=== PATIENT | male | born 1930 | race African-American/Black ===

== ENCOUNTER 2019-09-04 03:45 | Inpatient (IN) | payer OTHER ==
[2019-09-04] VITALS (7 sets, daily range): BP systolic 128–144; BP diastolic 76–86
[~2019-09-04] VITALS: Ht 172.7 cm; Wt 95.3 kg
[2019-09-04] MEDS ORDERED: ONDANSETRON HCL 4MG/2ML INJ IV STA (03:54)
[2019-09-04] MEDS ORDERED: IPRATROPIUM BROMIDE (0.02%) 0.5MG/2.5ML NEB HHN STA (03:54)
[2019-09-04] MEDS ORDERED: ALBUTEROL (0.083%) 2.5MG/3ML NEB HHN STA (03:54)
[2019-09-04] MEDS ORDERED: FUROSEMIDE 40MG/4ML VIAL IV ONE (04:00)
[2019-09-04] MEDS ORDERED: NITROGLYCERIN OINT 1GM/INCH UDPKT TD ONE (04:00)
[2019-09-04 04:54] LABS: BASOPHILS % 0.8 % (0.0-2.0); EOSINOPHILS % 7.7 % (0.0-5.0); HEMATOCRIT. 35.2 % (42.0-52.0); LYMPHOCYTES % 13.5 % (20.0-50.0); MEAN PLATELET VOLUME 7.7 fl (7.4-10.4); PLATELET 187 x1000/uL (130-400); RED BLOOD CELL COUNT 4.24 mill/uL (4.7-6.1); RED CELL DISTRIBUTION WIDTH 16.2 % (11.6-14.6)
[2019-09-04 04:57] LABS: CHLORIDE 100 mEq/L (98-107)
[2019-09-04 05:11] LABS: BG BASE EXCESS -6.1 mmol/L (-2.0-2.0); BG BILEVEL POS AIRWAY PRESSURE 15/5; BG CARBOXYHEMOGLOBIN 0.8 % (0.5-1.5); BG DEOXYHEMOGLOBIN 1.1 % (0.0-5.0); BG FRACTION INSPIRED OXYGEN 50; BG HCO3 ACT 20.1 mmol/L (22.0-26.0); BG METHEMOGLOBIN 0.3 % (0.0-1.5); BG OXYGEN SATURATION 98.9 % (92.0-98.5); BG OXYHEMOGLOBIN 97.8 % (94.0-97.0); BG PCO2 42.5 mmHg (35.0-45.0); BG PH 7.293 (7.350-7.450); BG PO2 145.1 mmHg (75.0-100.0); BG SAMPLE SITE RIGHT RADIAL; BG TOTAL HEMOGLOBIN 13.6 g/dL (12.0-18.0); BG VENT MODE MASK - BIPAP; BG VENT RATE 14 set
[2019-09-04] MEDS ORDERED: IPRATROPIUM/ALBUTEROL 0.5-3(2.5)MG/3ML NEB NEB PRN (10:45)
[2019-09-04] MEDS ORDERED: DIPHENHYDRAMINE 50MG/ML VIAL IV PRN (10:45)
[2019-09-04] MEDS ORDERED: LORAZEPAM 0.5MG TABLET PO PRN (10:45)
[2019-09-04] MEDS ORDERED: HYDROCODONE/ACETAMINOPHEN 5/325MG TABLET PO PRN (10:45)
[2019-09-04] MEDS ORDERED: NA PHOS,M-B/NA PHOS,DI-BA ENEMA 118ML PR PRN (10:45)
[2019-09-04] MEDS ORDERED: GUAIFENESIN 200MG/10ML SUGAR FREE UDC PO PRN (10:45)
[2019-09-04] MEDS ORDERED: DEXTROSE 50% WATER 50ML SYRINGE IV PRN (10:45)
[2019-09-04] MEDS ORDERED: ACETAMINOPHEN 650MG SUPP PR PRN (10:45)
[2019-09-04] MEDS ORDERED: ACETAMINOPHEN 325MG TABLET PO PRN (10:45)
[2019-09-04] MEDS ORDERED: MAGNESIUM/ALUMINUM HYDROXIDE/SIMETHICONE 30ML UDC PO PRN (10:45)
[2019-09-04] MEDS ORDERED: DOCUSATE SODIUM 100MG CAPSULE PO PRN (10:45)
[2019-09-04] MEDS ORDERED: ONDANSETRON HCL 4MG/2ML INJ IV PRN (10:45)
[2019-09-04] MEDS ORDERED: CLONIDINE 0.1MG TABLET PO PRN (10:45)
[2019-09-04] MEDS: METHYLPREDNISOLONE SOD SUCC 40 MG/ML VIAL IV SCH ×2 (11:49→19:03)
[2019-09-04] MEDS: BLOOD SUGAR DIAGNOSTIC STRIP TEST SCH ×3 (12:48→21:00)
[2019-09-04] MEDS: INSULIN LISPRO 100 UNITS/ML SUBCUT SCH ×3 (12:58→21:44)
[2019-09-04] MEDS: LEVOFLOXACIN 500MG PREMIX 100 ML IV SCH (14:02)
[2019-09-04 15:22] LABS: BG BASE EXCESS -0.4 mmol/L (-2.0-2.0); BG CARBOXYHEMOGLOBIN 0.2 % (0.5-1.5); BG DEOXYHEMOGLOBIN 5.8 % (0.0-5.0); BG FRACTION INSPIRED OXYGEN 21; BG METHEMOGLOBIN 0.4 % (0.0-1.5); BG OXYGEN SATURATION 94.2 % (92.0-98.5); BG OXYHEMOGLOBIN 93.6 % (94.0-97.0); BG PCO2 38.2 mmHg (35.0-45.0); BG PH 7.416 (7.350-7.450); BG PO2 71.9 mmHg (75.0-100.0); BG SAMPLE SITE RIGHT RADIAL; BG TOTAL HEMOGLOBIN 11.4 g/dL (12.0-18.0); BG VENT MODE ROOM AIR
[2019-09-04] MEDS: ENOXAPARIN 40MG/0.4ML SYR SUBCUT SCH (15:31)
[2019-09-04 16:44] LABS: CLARITY URINE CLEAR (CLEAR); COLOR URINE YELLOW (YELLOW); KETONES URINE NEGATIVE (NEGATIVE); LEUKOCYTE ESTERASE URINE NEGATIVE (NEGATIVE); NITRITE URINE NEGATIVE (NEGATIVE); OCCULT BLOOD URINE NEGATIVE (NEGATIVE); PROTEIN URINE NEGATIVE (NEGATIVE); SPECIFIC GRAVITY URINE 1.007 (1.005-1.030); UROBILINOGEN URINE 0.2 E.U./dL (0.2-1.0)
[2019-09-04 16:54] LABS: *AMPHETAMINES SCREEN URINE NEGATIVE (NEGATIVE); *BARBITURATES SCREEN URINE NEGATIVE (NEGATIVE); *BENZODIAZEPINES SCREEN URINE NEGATIVE (NEGATIVE)
[2019-09-04 16:55] LABS: *COCAINE SCREEN URINE NEGATIVE (NEGATIVE); CANNABINOID URINE SCREEN NEGATIVE (NEGATIVE); METHADONE URINE SCREEN NEGATIVE (NEGATIVE); OPIATES URINE SCREEN NEGATIVE (NEGATIVE); PHENCYCLIDINE URINE SCREEN NEGATIVE (NEGATIVE)
[2019-09-04 18:24] LABS: CREATINE KINASE MB FRACTION 4.7 ng/mL (0.5-3.6)
[2019-09-04] MEDS: IPRATROPIUM/ALBUTEROL 0.5-3(2.5)MG/3ML NEB NEB SCH (20:30)
[2019-09-04] MEDS: BUDESONIDE 0.5MG/2ML NEB HHN SCH (20:30)
[2019-09-04] MEDS: FAMOTIDINE 20MG TABLET PO SCH (21:18)
[2019-09-05] VITALS (11 sets, daily range): BP systolic 122–158; BP diastolic 44–91
[2019-09-05] MEDS: IPRATROPIUM/ALBUTEROL 0.5-3(2.5)MG/3ML NEB NEB SCH ×4 (00:42→20:28)
[2019-09-05 00:50] LABS: CREATINE KINASE 367 IU/L (39-308); CREATINE KINASE MB FRACTION 5.5 ng/mL (0.5-3.6)
[2019-09-05] MEDS: METHYLPREDNISOLONE SOD SUCC 40 MG/ML VIAL IV SCH ×2 (03:28→11:58)
[2019-09-05 06:48] LABS: BASOPHILS % 0.2 % (0.0-2.0); HEMATOCRIT. 32.3 % (42.0-52.0); HEMOGLOBIN. 10.2 g/dL (14.0-18.0); LYMPHOCYTES % 9.9 % (20.0-50.0); MEAN CORPUSCULAR HEMOGLOBIN 26.1 pg (28.0-32.0); MEAN CORPUSCULAR VOLUME 82.2 fL (80.0-94.0); MONOCYTES % 4.7 % (2.0-8.0); NEUTROPHILS % 85.2 % (40.0-76.0); PLATELET 193 x1000/uL (130-400); RED BLOOD CELL COUNT 3.93 mill/uL (4.7-6.1); RED CELL DISTRIBUTION WIDTH 15.5 % (11.6-14.6)
[2019-09-05] MEDS: BLOOD SUGAR DIAGNOSTIC STRIP TEST SCH ×4 (07:30→20:49)
[2019-09-05 08:01] LABS: CHLORIDE 102 mEq/L (98-107)
[2019-09-05 08:20] LABS: HDL CHOLESTEROL 37 mg/dL (40-59)
[2019-09-05 08:21] LABS: T4 FREE 0.99 ng/dL (0.76-1.46)
[2019-09-05 08:23] LABS: LDL CHOLESTEROL 142 mg/dL (5-100)
[2019-09-05] MEDS: FUROSEMIDE 40MG/4ML VIAL IVP SCH (08:33)
[2019-09-05] MEDS: ENOXAPARIN 40MG/0.4ML SYR SUBCUT SCH (08:34)
[2019-09-05] MEDS: INSULIN LISPRO 100 UNITS/ML SUBCUT SCH ×4 (08:35→20:52)
[2019-09-05] MEDS: BUDESONIDE 0.5MG/2ML NEB HHN SCH ×2 (08:49→20:27)
[2019-09-05] MEDS: METOPROLOL TARTRATE 50MG TABLET PO SCH ×2 (13:30→22:58)
[2019-09-05] MEDS: LEVOFLOXACIN 500MG PREMIX 100 ML IV SCH (13:31)
[2019-09-05] MEDS: FAMOTIDINE 20MG TABLET PO SCH (20:49)
[2019-09-06] VITALS (12 sets, daily range): BP systolic 107–158; BP diastolic 48–92
[2019-09-06] MEDS: IPRATROPIUM/ALBUTEROL 0.5-3(2.5)MG/3ML NEB NEB SCH ×4 (01:33→20:04)
[2019-09-06] MEDS: BUDESONIDE 0.5MG/2ML NEB HHN SCH ×2 (07:24→20:04)
[2019-09-06] MEDS: BLOOD SUGAR DIAGNOSTIC STRIP TEST SCH ×3 (07:30→17:44)
[2019-09-06] MEDS: INSULIN LISPRO 100 UNITS/ML SUBCUT SCH ×4 (08:29→21:00)
[2019-09-06] MEDS: METOPROLOL TARTRATE 50MG TABLET PO SCH (08:30)
[2019-09-06] MEDS: ENOXAPARIN 40MG/0.4ML SYR SUBCUT SCH (08:30)
[2019-09-06] MEDS: FUROSEMIDE 40MG/4ML VIAL IVP SCH (08:30)
[2019-09-06] MEDS ORDERED: LEVOFLOXACIN 250MG TABLET PO SCH (11:00)
[2019-09-06] MEDS ORDERED: AMLO10TA80 PO (16:31)
[2019-09-06] MEDS ORDERED: SITA1TAB2 MT (16:31)
[2019-09-06] MEDS ORDERED: BENA20TA10 PO (16:31)
[2019-09-06] MEDS ORDERED: FURO40TA5 PO (16:31)
[2019-09-06] MEDS ORDERED: METF-415 MT (16:31)
[2019-09-06] MEDS ORDERED: ASPI-1158 PO (16:31)
[2019-09-06] MEDS ORDERED: CHOL200074 PO (16:31)
[2019-09-06] MEDS ORDERED: POTA10CA42 PO (16:31)
[2019-09-06] MEDS ORDERED: TOPUD MT (16:31)
[2019-09-06] MEDS: METFORMIN HCL 500MG TABLET PO SCH (17:43)
[2019-09-06] MEDS: METOPROLOL TARTRATE 100MG TABLET PO SCH (21:00)
[2019-09-06] MEDS ORDERED: ENOXAPARIN 30MG/0.3ML SYR SUBCUT SCH (21:00)
[2019-09-06] MEDS: FAMOTIDINE 20MG TABLET PO SCH (21:32)
[2019-09-07] VITALS (10 sets, daily range): BP systolic 101–145; BP diastolic 50–77
[2019-09-07] MEDS: IPRATROPIUM/ALBUTEROL 0.5-3(2.5)MG/3ML NEB NEB SCH ×2 (02:17→06:28)
[2019-09-07 07:58] LABS: EOSINOPHILS % 6.3 % (0.0-5.0); HEMATOCRIT. 35.2 % (42.0-52.0); HEMOGLOBIN. 11.4 g/dL (14.0-18.0); LYMPHOCYTES % 26.2 % (20.0-50.0); MEAN CORPUSCULAR HEMOGLOBIN 26.8 pg (28.0-32.0); MEAN CORPUSCULAR VOLUME 83.2 fL (80.0-94.0); MEAN PLATELET VOLUME 8.2 fl (7.4-10.4); MONOCYTES % 10.3 % (2.0-8.0); NEUTROPHILS % 56.2 % (40.0-76.0); PLATELET 68 x1000/uL (130-400); RED BLOOD CELL COUNT 4.23 mill/uL (4.7-6.1)
[2019-09-07] MEDS: FUROSEMIDE 40MG/4ML VIAL IVP SCH (08:13)
[2019-09-07] MEDS: METFORMIN HCL 500MG TABLET PO SCH ×2 (08:13→17:59)
[2019-09-07] MEDS: INSULIN LISPRO 100 UNITS/ML SUBCUT SCH ×3 (08:13→18:00)
[2019-09-07] MEDS: METOPROLOL TARTRATE 100MG TABLET PO SCH (08:13)
[2019-09-07] MEDS: BLOOD SUGAR DIAGNOSTIC STRIP TEST SCH ×3 (08:14→18:00)
[2019-09-07 08:21] LABS: CHLORIDE 104 mEq/L (98-107)
[2019-09-07 08:26] LABS: PHOSPHORUS 4.7 mg/dL (2.5-4.9)
[2019-09-07 12:09] LABS: BASOPHILS % 0.9 % (0.0-2.0); EOSINOPHILS % 5.7 % (0.0-5.0); HEMATOCRIT. 37.5 % (42.0-52.0); HEMOGLOBIN. 11.8 g/dL (14.0-18.0); LYMPHOCYTES % 20.9 % (20.0-50.0); MEAN CORPUSCULAR HEMOGLOBIN 26.1 pg (28.0-32.0); MEAN CORPUSCULAR VOLUME 82.5 fL (80.0-94.0); MEAN PLATELET VOLUME 8.1 fl (7.4-10.4); MONOCYTES % 9.3 % (2.0-8.0); NEUTROPHILS % 63.2 % (40.0-76.0); PLATELET 218 x1000/uL (130-400); RED BLOOD CELL COUNT 4.54 mill/uL (4.7-6.1); RED CELL DISTRIBUTION WIDTH 15.9 % (11.6-14.6)
[2019-09-07 12:22] LABS: PROTHROMBIN TIME 10.7 sec (9.6-11.0)
[2019-09-07] MEDS ORDERED: LEVO500T2 MT (12:52)
[2019-09-07] MEDS ORDERED: METO100T16 MT (12:52)
[2019-09-07] MEDS ORDERED: INSU100I28 SQ (12:52)
[2019-09-07] MEDS ORDERED: INSU100V37 SQ (12:52)
[2019-09-07] MEDS ORDERED: ALBU05 NEB (12:52)
[2019-09-07] MEDS ORDERED: MAGNESIUM 1 G PREMIX 100 ML IV SCH (13:00)
== END 2019-09-07 22:42 | disposition home or self-care (01) | DRG 291 ==
LOC: ER 03:45 → 5EST 05:38 → EDBEDREQ 05:43 → EDBEDREQTM 05:43 → EDBEDREQSVC 05:43 → ENRESERV 10:15
PROVIDERS: ADMIT Internal Medicine; ATTEND Internal Medicine
PROC: 5A09357 Assistance with Respiratory Ventilation, Less than 24 Consecutive Hours, Continuous Positive Airway Pressure (ICD-10-PCS; principal; 2019-09-04)
PROC: 5A09357 Assistance with Respiratory Ventilation, Less than 24 Consecutive Hours, Continuous Positive Airway Pressure (ICD-10-PCS; 2019-09-05)
DX: I11.0 Hypertensive heart disease with heart failure (principal); J96.02 Acute respiratory failure with hypercapnia; J18.9 Pneumonia, unspecified organism; J44.1 Chronic obstructive pulmonary disease with (acute) exacerbation; E87.2 Acidosis; J44.0 Chronic obstructive pulmonary disease with (acute) lower respiratory infection; I50.33 Acute on chronic diastolic (congestive) heart failure; D64.9 Anemia, unspecified; E78.00 Pure hypercholesterolemia, unspecified; D72.829 Elevated white blood cell count, unspecified; E66.9 Obesity, unspecified; E11.65 Type 2 diabetes mellitus with hyperglycemia; R59.9 Enlarged lymph nodes, unspecified; Z87.891 Personal history of nicotine dependence; Z68.31 Body mass index [BMI] 31.0-31.9, adult
CPT/HCPCS: 36415; 36600; 71045; 71250; 80048; 80053; 80061; 80305; 81003; 82375; 82550; 82553; 82805; 82962; 83036; 83605; 83735; 83880; 84100; 84439; 84443; 84484; 85025; 93005; 93306; 93970; 94618; 94640; 94660; 97161; 99291; J1650; J1815; J1940; J1956; J2405; J2920; J3475; J7626

== ENCOUNTER 2019-09-15 01:50 | Inpatient (IN) | payer OTHER ==
[2019-09-15] VITALS (8 sets, daily range): BP systolic 130–152; BP diastolic 60–93
[~2019-09-15] VITALS: Ht 167.6 cm; Wt 98.4 kg
[~2019-09-15 01:50] MED LIST: ALBU05 NEB; AMLO10TA80 PO; ASPI-1158 PO; CHOL200074 PO; FURO40TA5 PO; INSU100I28 SQ; INSU100V37 SQ; LEVO500T2 MT; METF-415 MT; METO100T16 MT; POTA10CA42 PO; TOPUD MT
[2019-09-15] MEDS ORDERED: IPRATROPIUM BROMIDE (0.02%) 0.5MG/2.5ML NEB HHN STA (02:40)
[2019-09-15] MEDS ORDERED: ONDANSETRON HCL 4MG/2ML INJ IV STA (02:40)
[2019-09-15] MEDS ORDERED: METHYLPREDNISOLONE SOD SUCC 125 MG/2 ML VIAL IV STA (02:40)
[2019-09-15] MEDS ORDERED: MAGNESIUM 2 G PREMIX 50 ML IV ONE (02:45)
[2019-09-15 03:01] LABS: BASOPHILS % 0.6 % (0.0-2.0); EOSINOPHILS % 4.4 % (0.0-5.0); HEMATOCRIT. 35.6 % (42.0-52.0); HEMOGLOBIN. 11.1 g/dL (14.0-18.0); LYMPHOCYTES % 16.9 % (20.0-50.0); MEAN CORPUSCULAR HEMOGLOBIN 26.1 pg (28.0-32.0); MEAN CORPUSCULAR VOLUME 83.2 fL (80.0-94.0); MEAN PLATELET VOLUME 8.7 fl (7.4-10.4); MONOCYTES % 6.4 % (2.0-8.0); NEUTROPHILS % 71.7 % (40.0-76.0); PLATELET 216 x1000/uL (130-400); RED BLOOD CELL COUNT 4.27 mill/uL (4.7-6.1); RED CELL DISTRIBUTION WIDTH 16.4 % (11.6-14.6)
[2019-09-15 03:03] LABS: CHLORIDE 107 mEq/L (98-107)
[2019-09-15 03:07] LABS: BG BASE EXCESS -6.3 mmol/L (-2.0-2.0); BG BILEVEL POS AIRWAY PRESSURE 15/5; BG CARBOXYHEMOGLOBIN 0.2 % (0.5-1.5); BG DEOXYHEMOGLOBIN 2.1 % (0.0-5.0); BG FRACTION INSPIRED OXYGEN 50; BG HCO3 ACT 18.7 mmol/L (22.0-26.0); BG METHEMOGLOBIN 0.3 % (0.0-1.5); BG OXYGEN SATURATION 97.9 % (92.0-98.5); BG OXYHEMOGLOBIN 97.4 % (94.0-97.0); BG PCO2 35.2 mmHg (35.0-45.0); BG PH 7.343 (7.350-7.450); BG PO2 112.9 mmHg (75.0-100.0); BG SAMPLE SITE RIGHT RADIAL; BG TOTAL HEMOGLOBIN 11.2 g/dL (12.0-18.0); BG VENT MODE MASK - BIPAP
[2019-09-15] MEDS: ALBUTEROL (0.083%) 2.5MG/3ML NEB HHN SCH ×2 (03:44→03:45)
[2019-09-15] MEDS ORDERED: PIPERACILLIN/TAZ 3.375G PREMIX 50 ML IV ONE (06:00)
[2019-09-15] MEDS ORDERED: VANCOMYCIN 1 G PREMIX 200 ML IV SCH (06:00)
[2019-09-15] MEDS ORDERED: GUAIFENESIN 200MG/10ML SUGAR FREE UDC PO PRN (13:15)
[2019-09-15] MEDS ORDERED: ONDANSETRON HCL 4MG/2ML INJ IV PRN (13:15)
[2019-09-15] MEDS ORDERED: MAGNESIUM/ALUMINUM HYDROXIDE/SIMETHICONE 30ML UDC PO PRN (13:15)
[2019-09-15] MEDS ORDERED: ACETAMINOPHEN 325MG TABLET PO PRN (13:15)
[2019-09-15] MEDS ORDERED: DOCUSATE SODIUM 100MG CAPSULE PO PRN (13:15)
[2019-09-15] MEDS ORDERED: LORAZEPAM 0.5MG TABLET PO PRN (13:15)
[2019-09-15] MEDS ORDERED: IPRATROPIUM/ALBUTEROL 0.5-3(2.5)MG/3ML NEB NEB PRN (13:15)
[2019-09-15] MEDS ORDERED: NA PHOS,M-B/NA PHOS,DI-BA ENEMA 118ML PR PRN (13:15)
[2019-09-15] MEDS ORDERED: DIPHENHYDRAMINE 50MG/ML VIAL IV PRN (13:15)
[2019-09-15] MEDS ORDERED: ACETAMINOPHEN 650MG SUPP PR PRN (13:15)
[2019-09-15] MEDS ORDERED: DEXTROSE 50% WATER 50ML SYRINGE IV PRN (13:15)
[2019-09-15] MEDS ORDERED: CLONIDINE 0.1MG TABLET PO PRN (13:15)
[2019-09-15] MEDS ORDERED: HYDROCODONE/ACETAMINOPHEN 5/325MG TABLET PO PRN (13:15)
[2019-09-15] MEDS: METHYLPREDNISOLONE SOD SUCC 40 MG/ML VIAL IV SCH ×2 (14:00→20:52)
[2019-09-15 14:17] LABS: BG BASE EXCESS -4.8 mmol/L (-2.0-2.0); BG CARBOXYHEMOGLOBIN 0.7 % (0.5-1.5); BG DEOXYHEMOGLOBIN 6.8 % (0.0-5.0); BG FRACTION INSPIRED OXYGEN 21; BG HCO3 ACT 20.2 mmol/L (22.0-26.0); BG METHEMOGLOBIN 0.1 % (0.0-1.5); BG OXYGEN SATURATION 93.1 % (92.0-98.5); BG OXYHEMOGLOBIN 92.4 % (94.0-97.0); BG PCO2 37.1 mmHg (35.0-45.0); BG PH 7.353 (7.350-7.450); BG PO2 71.3 mmHg (75.0-100.0); BG SAMPLE SITE RIGHT RADIAL; BG TOTAL HEMOGLOBIN 11.4 g/dL (12.0-18.0); BG VENT MODE ROOM AIR
[2019-09-15] MEDS ORDERED: INSULIN GLARGINE UD 100 UNITS/ML SYR SUBCUT NR (14:30)
[2019-09-15] MEDS: IPRATROPIUM/ALBUTEROL 0.5-3(2.5)MG/3ML NEB NEB SCH ×2 (15:51→21:17)
[2019-09-15] MEDS: BLOOD SUGAR DIAGNOSTIC STRIP TEST SCH ×2 (17:58→20:11)
[2019-09-15 18:08] LABS: BASOPHILS % 0.4 % (0.0-2.0); EOSINOPHILS % 0.3 % (0.0-5.0); HEMATOCRIT. 31.7 % (42.0-52.0); LYMPHOCYTES % 8.6 % (20.0-50.0); MEAN CORPUSCULAR HEMOGLOBIN 26.2 pg (28.0-32.0); MEAN CORPUSCULAR VOLUME 82.6 fL (80.0-94.0); MEAN PLATELET VOLUME 7.7 fl (7.4-10.4); MONOCYTES % 5.6 % (2.0-8.0); NEUTROPHILS % 85.1 % (40.0-76.0); PLATELET 215 x1000/uL (130-400); RED BLOOD CELL COUNT 3.84 mill/uL (4.7-6.1); RED CELL DISTRIBUTION WIDTH 16.7 % (11.6-14.6)
[2019-09-15] MEDS: INSULIN LISPRO 100 UNITS/ML SUBCUT SCH ×2 (18:18→20:55)
[2019-09-15] MEDS: PIPERACILLIN/TAZOBACTAM 3.375 G in DEXT 5% WATER 100 ML IV SCH ×2 (18:19→20:11)
[2019-09-15] MEDS: FUROSEMIDE 40MG/4ML VIAL IVP SCH (18:19)
[2019-09-15 18:27] LABS: CLARITY URINE CLEAR (CLEAR); COLOR URINE YELLOW (YELLOW); KETONES URINE NEGATIVE (NEGATIVE); LEUKOCYTE ESTERASE URINE NEGATIVE (NEGATIVE); NITRITE URINE NEGATIVE (NEGATIVE); OCCULT BLOOD URINE NEGATIVE (NEGATIVE); PROTEIN URINE NEGATIVE (NEGATIVE); SPECIFIC GRAVITY URINE 1.027 (1.005-1.030); UROBILINOGEN URINE 0.2 E.U./dL (0.2-1.0)
[2019-09-15 18:34] LABS: INR 1.1; PROTHROMBIN TIME 10.8 sec (9.6-11.0)
[2019-09-15 18:46] LABS: CREATINE KINASE 229 IU/L (39-308); CREATINE KINASE MB FRACTION 3.8 ng/mL (0.5-3.6)
[2019-09-15 19:23] LABS: *AMPHETAMINES SCREEN URINE NEGATIVE (NEGATIVE); *BARBITURATES SCREEN URINE NEGATIVE (NEGATIVE); *BENZODIAZEPINES SCREEN URINE NEGATIVE (NEGATIVE); *COCAINE SCREEN URINE NEGATIVE (NEGATIVE)
[2019-09-15 19:24] LABS: CANNABINOID URINE SCREEN NEGATIVE (NEGATIVE); OPIATES URINE SCREEN NEGATIVE (NEGATIVE); PHENCYCLIDINE URINE SCREEN NEGATIVE (NEGATIVE)
[2019-09-15 19:25] LABS: METHADONE URINE SCREEN NEGATIVE (NEGATIVE)
[2019-09-15] MEDS: INSULIN GLARGINE UD 100 UNITS/ML SYR SUBCUT SCH (23:18)
[2019-09-16] VITALS (10 sets, daily range): BP systolic 121–148; BP diastolic 67–84
[2019-09-16] MEDS: IPRATROPIUM/ALBUTEROL 0.5-3(2.5)MG/3ML NEB NEB SCH ×3 (02:20→15:27)
[2019-09-16] MEDS: PIPERACILLIN/TAZOBACTAM 3.375 G in DEXT 5% WATER 100 ML IV SCH ×3 (02:36→15:05)
[2019-09-16] MEDS: METHYLPREDNISOLONE SOD SUCC 40 MG/ML VIAL IV SCH ×2 (05:14→14:19)
[2019-09-16 07:00] LABS: HEMATOCRIT. 30.8 % (42.0-52.0); HEMOGLOBIN. 9.8 g/dL (14.0-18.0); MEAN CORPUSCULAR HEMOGLOBIN 26.5 pg (28.0-32.0); MEAN CORPUSCULAR VOLUME 82.7 fL (80.0-94.0); MEAN PLATELET VOLUME 8.1 fl (7.4-10.4); PLATELET 217 x1000/uL (130-400); RED BLOOD CELL COUNT 3.72 mill/uL (4.7-6.1); RED CELL DISTRIBUTION WIDTH 16.3 % (11.6-14.6)
[2019-09-16] MEDS: BLOOD SUGAR DIAGNOSTIC STRIP TEST SCH ×2 (07:33→12:30)
[2019-09-16] MEDS: INSULIN LISPRO 100 UNITS/ML SUBCUT SCH ×2 (07:39→12:37)
[2019-09-16 08:37] LABS: CHLORIDE 102 mEq/L (98-107)
[2019-09-16 08:48] LABS: CREATINE KINASE 179 IU/L (39-308)
[2019-09-16 08:49] LABS: T4 FREE 0.98 ng/dL (0.76-1.46)
[2019-09-16 08:53] LABS: CREATINE KINASE MB FRACTION 2.8 ng/mL (0.5-3.6)
[2019-09-16] MEDS: FUROSEMIDE 40MG/4ML VIAL IVP SCH (09:06)
[2019-09-16] MEDS: INSULIN GLARGINE UD 100 UNITS/ML SYR SUBCUT SCH (10:10)
[2019-09-16 14:12] LABS: PLATELET ESTIMATE NORMAL
[2019-09-16] MEDS ORDERED: LEVO500T2 PO (15:40)
[2019-09-16] MEDS ORDERED: P20 PO (15:40)
[2019-09-16] MEDS ORDERED: FLUT1AER INH (15:40)
== END 2019-09-16 18:30 | disposition home or self-care (01) | DRG 291 ==
LOC: ER 01:50 → 5EST 05:55 → EDBEDREQ 05:58 → EDBEDREQTM 05:58 → EDBEDREQSVC 05:58 → ENRESERV 07:23
PROVIDERS: ADMIT Internal Medicine; ATTEND Internal Medicine
PROC: 5A09357 Assistance with Respiratory Ventilation, Less than 24 Consecutive Hours, Continuous Positive Airway Pressure (ICD-10-PCS; principal; 2019-09-15)
DX: I11.0 Hypertensive heart disease with heart failure (principal); J18.9 Pneumonia, unspecified organism; J96.01 Acute respiratory failure with hypoxia; J44.1 Chronic obstructive pulmonary disease with (acute) exacerbation; E87.2 Acidosis; I50.33 Acute on chronic diastolic (congestive) heart failure; D64.9 Anemia, unspecified; E11.65 Type 2 diabetes mellitus with hyperglycemia; E78.00 Pure hypercholesterolemia, unspecified; E78.5 Hyperlipidemia, unspecified; Z79.899 Other long term (current) drug therapy; Z79.82 Long term (current) use of aspirin; Z87.891 Personal history of nicotine dependence
CPT/HCPCS: 36415; 36600; 71045; 80053; 80305; 81003; 82375; 82550; 82553; 82805; 82962; 83605; 83880; 84439; 84443; 84484; 85025; 93005; 94640; 94660; 97162; 99291; J1815; J1940; J2405; J2543; J2920; J2930; J3370; J3475; J7060; J7611; J7620

== ENCOUNTER 2020-03-19 17:47 | Emergency (ER) | payer OTHER ==
[~2020-03-19] VITALS: Ht 172.7 cm; Wt 66.0 kg
[~2020-03-19 17:47] MED LIST changes: +FLUT1AER INH; -LEVO500T2 MT; +LEVO500T2 PO; +P20 PO; -POTA10CA42 PO
[2020-03-19] MEDS ORDERED: SODIUM CHLORIDE 0.9% 1,000 ML IV ONE (18:09)
[2020-03-19 18:59] LABS: BASOPHILS % 0.7 % (0.0-2.0); HEMATOCRIT. 34.5 % (42.0-52.0); LYMPHOCYTES % 13.1 % (20.0-50.0); MEAN CORPUSCULAR HEMOGLOBIN 26.8 pg (28.0-32.0); MEAN CORPUSCULAR VOLUME 84.3 fL (80.0-94.0); MONOCYTES % 5.9 % (2.0-8.0); NEUTROPHILS % 78.3 % (40.0-76.0); PLATELET 249 x1000/uL (130-400); RED BLOOD CELL COUNT 4.09 mill/uL (4.7-6.1); RED CELL DISTRIBUTION WIDTH 15.4 % (11.6-14.6)
[2020-03-19 19:02] LABS: CHLORIDE 100 mEq/L (98-107)
[2020-03-19] MEDS ORDERED: LACTULOSE 20G/30ML UDC PO ONE (20:30)
[2020-03-19] MEDS ORDERED: MAGNESIUM CITRATE 300ML SOLUTION PO ONE (20:30)
[2020-03-19] MEDS ORDERED: NA PHOS,M-B/NA PHOS,DI-BA ENEMA 118ML PR ONE (20:30)
[2020-03-20] MEDS ORDERED: LOPERAMIDE HCL 2MG CAPSULE PO ONE (00:30)
[2020-03-20 01:30] VITALS: BP 127/82
== END 2020-03-20 02:12 | disposition home or self-care (01) ==
LOC: ER 17:47 → SUPCPDRO 19:40 → ER 03-20 02:12
DX: R33.9 Retention of urine, unspecified (principal); K59.00 Constipation, unspecified; R42 Dizziness and giddiness; E11.9 Type 2 diabetes mellitus without complications; I10 Essential (primary) hypertension; Z86.73 Personal history of transient ischemic attack (TIA), and cerebral infarction without residual deficits; Z79.82 Long term (current) use of aspirin; Z79.899 Other long term (current) drug therapy
CPT/HCPCS: 36415; 71045; 80053; 84484; 85025; 93005; 96360; 96361; 99285; J7030

== ENCOUNTER 2020-03-23 16:44 | Emergency (ER) | payer OTHER ==
[~2020-03-23] VITALS: Ht 170.2 cm; Wt 75.0 kg
[2020-03-23 18:44] VITALS: BP 143/62
== END 2020-03-23 19:09 | disposition home or self-care (01) ==
LOC: ER 16:44
DX: Z46.6 Encounter for fitting and adjustment of urinary device (principal); Z48.00 Encounter for change or removal of nonsurgical wound dressing
CPT/HCPCS: 99281

== ENCOUNTER 2021-05-08 10:16 | Inpatient (IN) | payer OTHER ==
[~2021-05-08] VITALS: Ht 188 cm; Wt 98.9 kg
[~2021-05-08 10:16] MED LIST changes: -ASPI-1158 PO; +ASPI-1406 PO
[2021-05-08 11:27] LABS: HEMOGLOBIN. 8.7 g/dL (14.0-18.0); MEAN CORPUSCULAR HEMOGLOBIN 25.3 pg (28.0-32.0); MEAN PLATELET VOLUME 7.9 fl (7.4-10.4); PLATELET 306 x1000/uL (130-400); RED BLOOD CELL COUNT 3.46 mill/uL (4.7-6.1); RED CELL DISTRIBUTION WIDTH 22.5 % (11.6-14.6)
[2021-05-08 11:32] LABS: CHLORIDE 104 mEq/L (98-107)
[2021-05-08 12:00] LABS: INR 1.1; PROTHROMBIN TIME 12.2 sec (9.6-11.0)
[2021-05-08 12:31] LABS: PLATELET ESTIMATE NORMAL
[2021-05-08] MEDS ORDERED: CEFTRIAXONE 1 G PREMIX 50 ML IV NR (13:00)
[2021-05-08] MEDS ORDERED: ASPIRIN 325MG EC TABLET PO NR (13:00)
[2021-05-08] MEDS ORDERED: DEXAMETHASONE 10 MG/ML VIAL IV NR (13:00)
[2021-05-08] MEDS ORDERED: AZITHROMYCIN 500 MG in DEXT 5% WATER 250 ML IV SCH (13:00)
[2021-05-08 13:34] LABS: CLARITY URINE CLEAR (CLEAR); COLOR URINE YELLOW (YELLOW); KETONES URINE 1+ (NEGATIVE); LEUKOCYTE ESTERASE URINE NEGATIVE (NEGATIVE); NITRITE URINE NEGATIVE (NEGATIVE); OCCULT BLOOD URINE TRACE (NEGATIVE); PH URINE 5.5 (4.5-8.0); PROTEIN URINE 1+ (NEGATIVE); SPECIFIC GRAVITY URINE 1.023 (1.005-1.030); UROBILINOGEN URINE 0.2 E.U./dL (0.2-1.0)
[2021-05-08] MEDS ORDERED: HYDRALAZINE 20MG/ML VIAL IV PRN (15:00)
[2021-05-08] MEDS: HYDRALAZINE HCL 50MG TABLET PO SCH ×2 (15:23→21:17)
[2021-05-08] MEDS ORDERED: INSULIN LISPRO (HUMALOG) 300UNITS/3ML VIAL SUBCUT SCH (17:45)
[2021-05-08] MEDS ORDERED: INSULIN LISPRO 100 UNITS/ML SUBCUT PRN (17:50)
[2021-05-08 18:31] VITALS: BP 145/79
[2021-05-08 20:00] VITALS: BP 148/79
[2021-05-08] MEDS ORDERED: CLONIDINE 0.1MG TABLET PO PRN (20:30)
[2021-05-08] MEDS ORDERED: DEXTROSE 50% WATER 50ML SYRINGE IV PRN (20:30)
[2021-05-08] MEDS ORDERED: INSULIN GLARGINE UD 100 UNITS/ML SYR SUBCUT NR (20:30)
[2021-05-08] MEDS ORDERED: ONDANSETRON HCL 4MG/2ML INJ IV PRN (20:45)
[2021-05-08] MEDS ORDERED: ACETAMINOPHEN 325MG TABLET PO PRN (20:45)
[2021-05-08] MEDS: BLOOD SUGAR DIAGNOSTIC STRIP TEST SCH (21:11)
[2021-05-08] MEDS: METOPROLOL TARTRATE 50MG TABLET PO SCH (21:18)
[2021-05-08] MEDS: HEPARIN 5000 UNITS/ML VIAL SUBCUT SCH (21:19)
[2021-05-08] MEDS: INSULIN LISPRO 100 UNITS/ML SUBCUT SCH (21:20)
[2021-05-08] MEDS ORDERED: CEFTRIAXONE 1,000 MG in DEXTROSE 5% WATER 50 ML IV SCH (21:30)
[2021-05-08 23:58] LABS: CREATINE KINASE MB FRACTION 3.4 ng/mL (0.5-3.6)
[2021-05-09] VITALS: BP 107/48
[2021-05-09 04:00] VITALS: BP 117/61
[2021-05-09] MEDS: INSULIN LISPRO 100 UNITS/ML SUBCUT SCH ×4 (05:50→21:41)
[2021-05-09] MEDS: HYDRALAZINE HCL 50MG TABLET PO SCH ×3 (05:50→21:32)
[2021-05-09] MEDS: BLOOD SUGAR DIAGNOSTIC STRIP TEST SCH ×4 (05:50→21:38)
[2021-05-09 06:23] LABS: BASOPHILS % 0.4 % (0.0-2.0); EOSINOPHILS % 0.1 % (0.0-5.0); HEMATOCRIT. 27.3 % (42.0-52.0); HEMOGLOBIN. 8.8 g/dL (14.0-18.0); LYMPHOCYTES % 11.5 % (20.0-50.0); MEAN CORPUSCULAR HEMOGLOBIN 25.2 pg (28.0-32.0); MEAN CORPUSCULAR VOLUME 78.3 fL (80.0-94.0); MONOCYTES % 2.5 % (2.0-8.0); NEUTROPHILS % 85.5 % (40.0-76.0); PLATELET 285 x1000/uL (130-400); RED BLOOD CELL COUNT 3.49 mill/uL (4.7-6.1); RED CELL DISTRIBUTION WIDTH 22.7 % (11.6-14.6)
[2021-05-09 06:48] LABS: CHLORIDE 105 mEq/L (98-107)
[2021-05-09 06:57] LABS: LDL CHOLESTEROL 53 mg/dL (5-100)
[2021-05-09 06:58] LABS: CREATINE KINASE 169 IU/L (39-308); CREATINE KINASE MB FRACTION 3.3 ng/mL (0.5-3.6); HDL CHOLESTEROL 33 mg/dL (40-59)
[2021-05-09 06:59] LABS: T4 FREE 1.08 ng/dL (0.76-1.46)
[2021-05-09 08:00] VITALS: BP 119/66
[2021-05-09] MEDS: ASPIRIN 81MG TABLET PO SCH (08:30)
[2021-05-09] MEDS: FAMOTIDINE 20MG TABLET PO SCH (08:31)
[2021-05-09] MEDS: AMLODIPINE 10MG TABLET PO SCH (08:31)
[2021-05-09] MEDS: METOPROLOL TARTRATE 50MG TABLET PO SCH ×2 (08:31→21:00)
[2021-05-09] MEDS: FUROSEMIDE 40MG/4ML VIAL IVP SCH (08:31)
[2021-05-09] MEDS: HEPARIN 5000 UNITS/ML VIAL SUBCUT SCH (08:32)
[2021-05-09] MEDS: INSULIN GLARGINE UD 100 UNITS/ML SYR SUBCUT SCH (09:45)
[2021-05-09 12:00] VITALS: BP 113/57
[2021-05-09] MEDS ORDERED: CEFTRIAXONE 1,000 MG in DEXTROSE 5% WATER 50 ML IV SCH (13:00)
[2021-05-09] MEDS: AZITHROMYCIN 500 MG in DEXT 5% WATER 250 ML IV SCH (13:07)
[2021-05-09] MEDS ORDERED: CEFTRIAXONE 1 G PREMIX 50 ML IV SCH (13:30)
[2021-05-09] MEDS ORDERED: HYDRALAZINE 20MG/ML VIAL IV PRN (14:15)
[2021-05-09] MEDS ORDERED: DIPHENHYDRAMINE 50MG/ML VIAL IV PRN (14:15)
[2021-05-09] MEDS ORDERED: LACTULOSE 20G/30ML UDC PO PRN (14:15)
[2021-05-09] MEDS ORDERED: HYDROCODONE/ACETAMINOPHEN 5/325MG TABLET PO PRN (14:15)
[2021-05-09] MEDS: DEXAMETHASONE 10 MG/ML VIAL IV SCH (15:06)
[2021-05-09 16:00] VITALS: BP 110/52
[2021-05-09] MEDS: ALBUTEROL 6.7GM HFA INHALER ORI SCH ×2 (17:44→23:56)
[2021-05-09 19:57] VITALS: BP 110/54
[2021-05-09] MEDS ORDERED: NALOXONE HCL 0.4MG/ML VIAL IV PRN (23:45)
[2021-05-09] MEDS: VANCOMYCIN 1 G PREMIX 200 ML IV SCH (23:56)
[2021-05-10] VITALS: BP 113/62
[2021-05-10 04:00] VITALS: BP 106/52
[2021-05-10] MEDS: HYDRALAZINE HCL 50MG TABLET PO SCH ×3 (05:06→22:00)
[2021-05-10 05:17] LABS: BASOPHILS % 0.4 % (0.0-2.0); EOSINOPHILS % 0.1 % (0.0-5.0); HEMATOCRIT. 27.7 % (42.0-52.0); LYMPHOCYTES % 10.7 % (20.0-50.0); MEAN CORPUSCULAR HEMOGLOBIN 25.5 pg (28.0-32.0); MEAN CORPUSCULAR VOLUME 78.4 fL (80.0-94.0); MEAN PLATELET VOLUME 7.8 fl (7.4-10.4); MONOCYTES % 2.6 % (2.0-8.0); NEUTROPHILS % 86.2 % (40.0-76.0); PLATELET 260 x1000/uL (130-400); RED BLOOD CELL COUNT 3.54 mill/uL (4.7-6.1); RED CELL DISTRIBUTION WIDTH 22.6 % (11.6-14.6)
[2021-05-10] MEDS: ALBUTEROL 6.7GM HFA INHALER ORI SCH ×3 (05:36→17:21)
[2021-05-10] MEDS: BLOOD SUGAR DIAGNOSTIC STRIP TEST SCH ×4 (05:36→21:00)
[2021-05-10 08:00] VITALS: BP 126/65
[2021-05-10] MEDS: FAMOTIDINE 20MG TABLET PO SCH (08:32)
[2021-05-10] MEDS: AMLODIPINE 10MG TABLET PO SCH (08:32)
[2021-05-10] MEDS: METOPROLOL TARTRATE 50MG TABLET PO SCH ×2 (08:32→20:45)
[2021-05-10] MEDS: DEXAMETHASONE 10 MG/ML VIAL IV SCH (08:33)
[2021-05-10] MEDS: ASPIRIN 81MG TABLET PO SCH (08:33)
[2021-05-10] MEDS: FUROSEMIDE 40MG/4ML VIAL IVP SCH (08:33)
[2021-05-10] MEDS: INSULIN LISPRO 100 UNITS/ML SUBCUT SCH ×4 (08:33→22:08)
[2021-05-10] MEDS: INSULIN GLARGINE UD 100 UNITS/ML SYR SUBCUT SCH (09:12)
[2021-05-10 12:00] VITALS: BP 118/55
[2021-05-10 12:05] LABS: BG BASE EXCESS 0.8 mmol/L (-2.0-2.0); BG CARBOXYHEMOGLOBIN 0.3 % (0.5-1.5); BG DEOXYHEMOGLOBIN 6.4 % (0.0-5.0); BG FRACTION INSPIRED OXYGEN 21; BG HCO3 ACT 24.3 mmol/L (22.0-26.0); BG METHEMOGLOBIN 0.3 % (0.0-1.5); BG OXYGEN SATURATION 93.6 % (92.0-98.5); BG PCO2 34.4 mmHg (35.0-45.0); BG PH 7.467 (7.350-7.450); BG SAMPLE SITE LEFT RADIAL; BG TOTAL HEMOGLOBIN 9.4 g/dL (12.0-18.0); BG VENT MODE ROOM AIR
[2021-05-10] MEDS: AZITHROMYCIN 500 MG in DEXT 5% WATER 250 ML IV SCH (14:02)
[2021-05-10 16:00] VITALS: BP 116/54
[2021-05-10 20:00] VITALS: BP 96/44
[2021-05-10] MEDS: VANCOMYCIN 1 G PREMIX 200 ML IV SCH (22:08)
[2021-05-11] VITALS: BP 129/70
[2021-05-11 04:00] VITALS: BP 131/66
[2021-05-11 05:38] LABS: BASOPHILS % 0.4 % (0.0-2.0); EOSINOPHILS % 0.3 % (0.0-5.0); HEMATOCRIT. 26.1 % (42.0-52.0); HEMOGLOBIN. 8.6 g/dL (14.0-18.0); LYMPHOCYTES % 14.1 % (20.0-50.0); MEAN CORPUSCULAR HEMOGLOBIN 25.2 pg (28.0-32.0); MEAN CORPUSCULAR VOLUME 76.7 fL (80.0-94.0); MEAN PLATELET VOLUME 7.6 fl (7.4-10.4); MONOCYTES % 3.3 % (2.0-8.0); NEUTROPHILS % 81.9 % (40.0-76.0); PLATELET 313 x1000/uL (130-400); RED BLOOD CELL COUNT 3.41 mill/uL (4.7-6.1); RED CELL DISTRIBUTION WIDTH 22.8 % (11.6-14.6)
[2021-05-11] MEDS: HYDRALAZINE HCL 50MG TABLET PO SCH ×2 (06:52→13:59)
[2021-05-11] MEDS: ALBUTEROL 6.7GM HFA INHALER ORI SCH ×4 (06:53→17:08)
[2021-05-11] MEDS: BLOOD SUGAR DIAGNOSTIC STRIP TEST SCH ×3 (06:53→16:52)
[2021-05-11 08:00] VITALS: BP 129/65
[2021-05-11] MEDS: DEXAMETHASONE 10 MG/ML VIAL IV SCH (08:23)
[2021-05-11] MEDS: FUROSEMIDE 40MG/4ML VIAL IVP SCH (08:23)
[2021-05-11] MEDS: ASPIRIN 81MG TABLET PO SCH (08:24)
[2021-05-11] MEDS: AMLODIPINE 10MG TABLET PO SCH (08:24)
[2021-05-11] MEDS: FAMOTIDINE 20MG TABLET PO SCH (08:24)
[2021-05-11] MEDS: METOPROLOL TARTRATE 50MG TABLET PO SCH (08:26)
[2021-05-11] MEDS: INSULIN LISPRO 100 UNITS/ML SUBCUT SCH ×3 (08:53→17:10)
[2021-05-11] MEDS: INSULIN GLARGINE UD 100 UNITS/ML SYR SUBCUT SCH (10:17)
[2021-05-11 12:00] VITALS: BP 116/56
[2021-05-11] MEDS: AZITHROMYCIN 500 MG in DEXT 5% WATER 250 ML IV SCH (13:58)
[2021-05-11] MEDS ORDERED: ALBU05 NEB (14:33)
[2021-05-11] MEDS ORDERED: AMOX-424 MT (14:33)
[2021-05-11] MEDS ORDERED: DEXA2TAB PO (14:33)
[2021-05-11] MEDS ORDERED: FLUT1AER INH (14:33)
[2021-05-11] MEDS ORDERED: ASPI-1406 PO (14:33)
[2021-05-11 15:36] VITALS: BP 127/63
[2021-05-11 16:00] VITALS: BP 126/61
[2021-05-11] MEDS ORDERED: AMOXICILLIN/POTASSIUM CLAVULANATE 875/125MG TAB PO SCH (21:00)
[2021-05-12] MEDS ORDERED: AZITHROMYCIN 500 MG TABLET PO SCH (09:00)
== END 2021-05-11 19:49 | disposition home or self-care (01) | DRG 177 ==
LOC: ER 10:29 → 7WST 14:53 → ENRESERV 16:00
PROVIDERS: ADMIT Internal Medicine; ATTEND Internal Medicine
DX: U07.1 COVID-19 (principal); I21.4 Non-ST elevation (NSTEMI) myocardial infarction; I50.33 Acute on chronic diastolic (congestive) heart failure; J12.82 Pneumonia due to coronavirus disease 2019; I13.0 Hypertensive heart and chronic kidney disease with heart failure and stage 1 through stage 4 chronic kidney disease, or unspecified chronic kidney disease; J44.0 Chronic obstructive pulmonary disease with (acute) lower respiratory infection; J44.1 Chronic obstructive pulmonary disease with (acute) exacerbation; D64.9 Anemia, unspecified; E11.22 Type 2 diabetes mellitus with diabetic chronic kidney disease; E11.65 Type 2 diabetes mellitus with hyperglycemia; E66.9 Obesity, unspecified; E78.5 Hyperlipidemia, unspecified; N18.9 Chronic kidney disease, unspecified; I08.0 Rheumatic disorders of both mitral and aortic valves; Z86.73 Personal history of transient ischemic attack (TIA), and cerebral infarction without residual deficits; Z87.891 Personal history of nicotine dependence; Z79.4 Long term (current) use of insulin; Z79.51 Long term (current) use of inhaled steroids; Z79.899 Other long term (current) drug therapy; Z82.49 Family history of ischemic heart disease and other diseases of the circulatory system; Z68.28 Body mass index [BMI] 28.0-28.9, adult; R06.03 Acute respiratory distress
CPT/HCPCS: 36415; 36600; 71045; 78580; 80048; 80053; 80061; 80202; 81003; 82375; 82550; 82553; 82728; 82805; 82962; 83605; 83880; 84145; 84439; 84443; 84484; 85025; 85379; 86140; 93005; 93970; 97162; 97535; 99291; C1893; J0456; J0696; J1100; J1644; J1815; J1940; J3370; J7040; J7060; U0003; U0005

== ENCOUNTER 2021-10-15 07:02 | Emergency (ER) | payer BC, OTHER ==
[~2021-10-15] VITALS: Ht 177.8 cm; Wt 91.0 kg
[~2021-10-15 07:02] MED LIST changes: +AMOX-424 MT; +DEXA2TAB PO; -LEVO500T2 PO; -P20 PO
[2021-10-15 08:15] LABS: BASOPHILS % 0.4 % (0.0-2.0); EOSINOPHILS % 0.1 % (0.0-5.0); HEMATOCRIT. 29.8 % (42.0-52.0); HEMOGLOBIN. 9.1 g/dL (14.0-18.0); LYMPHOCYTES % 11.3 % (20.0-50.0); MEAN PLATELET VOLUME 7.8 fl (7.4-10.4); MONOCYTES % 6.9 % (2.0-8.0); NEUTROPHILS % 81.3 % (40.0-76.0); PLATELET 188 x1000/uL (130-400); RED BLOOD CELL COUNT 3.77 mill/uL (4.7-6.1); RED CELL DISTRIBUTION WIDTH 21.7 % (11.6-14.6)
[2021-10-15 08:21] LABS: CHLORIDE 93 mEq/L (98-107)
[2021-10-15 08:26] LABS: ETHANOL BLOOD < 10 mg/dL
[2021-10-15 09:02] LABS: *BARBITURATES SCREEN URINE NEGATIVE (NEGATIVE); CANNABINOID URINE SCREEN NEGATIVE (NEGATIVE); PHENCYCLIDINE URINE SCREEN NEGATIVE (NEGATIVE)
[2021-10-15 09:03] LABS: *AMPHETAMINES SCREEN URINE NEGATIVE (NEGATIVE); *BENZODIAZEPINES SCREEN URINE NEGATIVE (NEGATIVE); *COCAINE SCREEN URINE NEGATIVE (NEGATIVE); METHADONE URINE SCREEN NEGATIVE (NEGATIVE); OPIATES URINE SCREEN NEGATIVE (NEGATIVE)
[2021-10-15] MEDS ORDERED: FUROSEMIDE 40MG/4ML VIAL IV ONE (09:45)
[2021-10-15] MEDS ORDERED: ASPIRIN 81MG TABLET PO ONE (09:45)
[2021-10-15] MEDS ORDERED: INSULIN REGULAR (HUMULIN R) 300UNITS/3ML VIAL SUBCUT ONE ×2 (09:45→13:30)
[2021-10-15 13:52] VITALS: BP 126/51
== END 2021-10-15 14:09 | disposition short-term general hospital (02) ==
LOC: ER 07:23 → CANBEDREQ 16:09
DX: I11.0 Hypertensive heart disease with heart failure (principal); I50.9 Heart failure, unspecified; E11.65 Type 2 diabetes mellitus with hyperglycemia; Z87.01 Personal history of pneumonia (recurrent); Z86.73 Personal history of transient ischemic attack (TIA), and cerebral infarction without residual deficits; Z79.899 Other long term (current) drug therapy; Z20.822 Contact with and (suspected) exposure to COVID-19
CPT/HCPCS: 36415; 71045; 80053; 80305; 80320; 82962; 83880; 84484; 85025; 87426; 93005; 96372; 96374; 99291; J1815; J1940; G0480

== ENCOUNTER 2022-02-10 08:32 | Emergency (ER) | payer BC ==
[~2022-02-10] VITALS: Ht 170.2 cm; Wt 81.0 kg
[2022-02-10 09:26] LABS: BASOPHILS % 0.9 % (0.0-2.0); EOSINOPHILS % 1.5 % (0.0-5.0); HEMATOCRIT. 31.2 % (42.0-52.0); HEMOGLOBIN. 9.5 g/dL (14.0-18.0); LYMPHOCYTES % 19.5 % (20.0-50.0); MEAN CORPUSCULAR HEMOGLOBIN 25.1 pg (28.0-32.0); MEAN CORPUSCULAR VOLUME 82.5 fL (80.0-94.0); MEAN PLATELET VOLUME 8.2 fl (7.4-10.4); MONOCYTES % 7.1 % (2.0-8.0); PLATELET 155 x1000/uL (130-400); RED BLOOD CELL COUNT 3.79 mill/uL (4.7-6.1); RED CELL DISTRIBUTION WIDTH 18.2 % (11.6-14.6)
[2022-02-10 09:37] LABS: CHLORIDE 102 mEq/L (98-107)
[2022-02-10] MEDS ORDERED: FUROSEMIDE 40MG/4ML VIAL IV ONE (10:30)
[2022-02-10] MEDS ORDERED: ASPIRIN 81MG TABLET PO ONE (10:30)
[2022-02-10] MEDS ORDERED: INSULIN REGULAR (HUMULIN R) UD 100 UNITS/ML SYR SUBCUT ONE (12:30)
[2022-02-10] MEDS ORDERED: INSULIN REGULAR (HUMULIN R) 300UNITS/3ML VIAL SUBCUT SCH (12:45)
[2022-02-10 14:25] VITALS: BP 115/71
== END 2022-02-10 16:04 | disposition short-term general hospital (02) ==
LOC: ER 08:32
DX: I11.9 Hypertensive heart disease without heart failure (principal); E11.65 Type 2 diabetes mellitus with hyperglycemia; Z86.73 Personal history of transient ischemic attack (TIA), and cerebral infarction without residual deficits; Z79.82 Long term (current) use of aspirin; Z79.4 Long term (current) use of insulin
CPT/HCPCS: 36415; 71045; 80053; 82962; 83880; 84484; 85025; 87040; 87426; 93005; 96374; 99291; C9803; J1815; J1940

== ENCOUNTER 2022-02-24 07:51 | Inpatient (IN) | payer BC ==
[~2022-02-24] VITALS: Ht 172.7 cm; Wt 88.0 kg
[2022-02-24] MEDS ORDERED: SODIUM CHLORIDE 0.9% 1,000 ML IV ONE (08:30)
[2022-02-24 08:44] LABS: BASOPHILS % 0.7 % (0.0-2.0); HEMATOCRIT. 29.6 % (42.0-52.0); HEMOGLOBIN. 9.1 g/dL (14.0-18.0); LYMPHOCYTES % 10.1 % (20.0-50.0); MEAN CORPUSCULAR VOLUME 81.2 fL (80.0-94.0); MEAN PLATELET VOLUME 8.6 fl (7.4-10.4); MONOCYTES % 3.7 % (2.0-8.0); NEUTROPHILS % 85.5 % (40.0-76.0); PLATELET 204 x1000/uL (130-400); RED BLOOD CELL COUNT 3.65 mill/uL (4.7-6.1); RED CELL DISTRIBUTION WIDTH 18.1 % (11.6-14.6)
[2022-02-24 08:54] LABS: CHLORIDE 103 mEq/L (98-107)
[2022-02-24 09:03] LABS: BETA HYDROXYBUTYRATE 1.5 mMol/L (0.0-0.3)
[2022-02-24] MEDS ORDERED: PIPERACILLIN/TAZOBACTAM 3.375GM/50ML PREMIX IV NR (10:08)
[2022-02-24] MEDS ORDERED: VANCOMYCIN 1G PREMIX 200 ML IV SCH (10:15)
[2022-02-24] MEDS ORDERED: INSULIN REGULAR (HUMULIN R) 300UNITS/3ML VIAL IV ONE (10:45)
[2022-02-24 11:14] LABS: BG BASE EXCESS -7.1 mmol/L (-2.0-2.0); BG CARBOXYHEMOGLOBIN 0.5 % (0.5-1.5); BG DEOXYHEMOGLOBIN 3.7 % (0.0-5.0); BG FRACTION INSPIRED OXYGEN 21; BG HCO3 ACT 16.7 mmol/L (22.0-26.0); BG METHEMOGLOBIN 0.3 % (0.0-1.5); BG OXYGEN SATURATION 96.3 % (92.0-98.5); BG OXYHEMOGLOBIN 95.5 % (94.0-97.0); BG PCO2 27.9 mmHg (35.0-45.0); BG PH 7.395 (7.350-7.450); BG PO2 90.2 mmHg (75.0-100.0); BG SAMPLE SITE RIGHT RADIAL; BG TOTAL HEMOGLOBIN 9.5 g/dL (12.0-18.0); BG VENT MODE ROOM AIR
[2022-02-24 12:41] LABS: CLARITY URINE CLEAR (CLEAR); COLOR URINE YELLOW (YELLOW); KETONES URINE TRACE (NEGATIVE); LEUKOCYTE ESTERASE URINE NEGATIVE (NEGATIVE); NITRITE URINE NEGATIVE (NEGATIVE); OCCULT BLOOD URINE 1+ (NEGATIVE); PROTEIN URINE 1+ (NEGATIVE); UROBILINOGEN URINE 0.2 E.U./dL (0.2-1.0)
[2022-02-24 22:30] VITALS: BP 128/78
[2022-02-25] VITALS (7 sets, daily range): BP systolic 114–139; BP diastolic 67–95
[2022-02-25] MEDS ORDERED: DEXTROSE 50% WATER 50ML SYRINGE IV PRN (00:15)
[2022-02-25] MEDS ORDERED: IPRATROPIUM/ALBUTEROL 0.5-3(2.5)MG/3ML NEB HHN PRN (00:15)
[2022-02-25] MEDS: SODIUM CHLORIDE 0.45% 1,000 ML IV SCH ×2 (01:07→16:38)
[2022-02-25 05:45] LABS: BASOPHILS % 0.6 % (0.0-2.0); HEMATOCRIT. 32.6 % (42.0-52.0); HEMOGLOBIN. 9.9 g/dL (14.0-18.0); LYMPHOCYTES % 14.3 % (20.0-50.0); MEAN CORPUSCULAR HEMOGLOBIN 24.9 pg (28.0-32.0); MEAN CORPUSCULAR VOLUME 81.9 fL (80.0-94.0); MEAN PLATELET VOLUME 8.3 fl (7.4-10.4); MONOCYTES % 5.1 % (2.0-8.0); PLATELET 200 x1000/uL (130-400); RED BLOOD CELL COUNT 3.98 mill/uL (4.7-6.1); RED CELL DISTRIBUTION WIDTH 18.5 % (11.6-14.6)
[2022-02-25] MEDS: BLOOD SUGAR DIAGNOSTIC STRIP TEST SCH ×4 (06:42→21:13)
[2022-02-25] MEDS: PANTOPRAZOLE 40MG DR TABLET PO SCH (06:53)
[2022-02-25] MEDS: ENOXAPARIN 30MG/0.3ML SYR SUBCUT SCH (09:12)
[2022-02-25] MEDS: INSULIN LISPRO 100 UNITS/ML SUBCUT SCH ×4 (09:13→21:18)
[2022-02-25] MEDS ORDERED: INSULIN GLARGINE 100 UNITS/ML SUBCUT NR (10:15)
[2022-02-25] MEDS ORDERED: CEFTRIAXONE 1 G PREMIX 50 ML IV SCH (14:00)
[2022-02-25] MEDS: CEFTRIAXONE 1,000 MG in DEXTROSE 5% WATER 50 ML IV SCH (16:39)
[2022-02-25] MEDS: AZITHROMYCIN 500 MG in DEXT 5% WATER 250 ML IV SCH (16:59)
[2022-02-25] MEDS ORDERED: IPRATROPIUM BROMIDE (0.02%) 0.5MG/2.5ML NEB HHN PRN (17:00)
[2022-02-25] MEDS ORDERED: METHYLPREDNISOLONE SOD SUCC 40 MG/ML VIAL IV NR (18:45)
[2022-02-25 19:04] LABS: BG BASE EXCESS -9.3 mmol/L (-2.0-2.0); BG CARBOXYHEMOGLOBIN 0.1 % (0.5-1.5); BG DEOXYHEMOGLOBIN 1.1 % (0.0-5.0); BG FRACTION INSPIRED OXYGEN 36; BG HCO3 ACT 13.6 mmol/L (22.0-26.0); BG METHEMOGLOBIN 0.2 % (0.0-1.5); BG OXYGEN SATURATION 98.9 % (92.0-98.5); BG OXYHEMOGLOBIN 98.6 % (94.0-97.0); BG PCO2 21.4 mmHg (35.0-45.0); BG PO2 145.2 mmHg (75.0-100.0); BG SAMPLE SITE RIGHT RADIAL; BG TOTAL HEMOGLOBIN 10.1 g/dL (12.0-18.0); BG VENT MODE NASAL CANNULA
[2022-02-25] MEDS ORDERED: FUROSEMIDE 40MG/4ML VIAL IVP NR (20:00)
[2022-02-25] MEDS: INSULIN GLARGINE 100 UNITS/ML SUBCUT SCH (22:00)
[2022-02-26] VITALS (9 sets, daily range): BP systolic 99–120; BP diastolic 62–74
[2022-02-26] MEDS: METHYLPREDNISOLONE SOD SUCC 40 MG/ML VIAL IV SCH ×3 (04:09→18:15)
[2022-02-26] MEDS: BLOOD SUGAR DIAGNOSTIC STRIP TEST SCH ×4 (07:22→21:00)
[2022-02-26] MEDS: INSULIN LISPRO 100 UNITS/ML SUBCUT SCH ×4 (07:22→21:36)
[2022-02-26] MEDS: ENOXAPARIN 30MG/0.3ML SYR SUBCUT SCH (09:30)
[2022-02-26] MEDS: PANTOPRAZOLE 40MG DR TABLET PO SCH (09:30)
[2022-02-26] MEDS: INSULIN GLARGINE 100 UNITS/ML SUBCUT SCH ×2 (09:30→21:37)
[2022-02-26] MEDS: SODIUM CHLORIDE 0.45% 1,000 ML IV SCH (09:33)
[2022-02-26] MEDS ORDERED: HYDRALAZINE 20MG/ML VIAL IV PRN (13:30)
[2022-02-26] MEDS ORDERED: HYDROCODONE/ACETAMINOPHEN 5/325MG TABLET PO PRN (13:30)
[2022-02-26] MEDS ORDERED: NALOXONE HCL 0.4MG/ML VIAL IV PRN (13:45)
[2022-02-26 14:12] LABS: BG BASE EXCESS -5.6 mmol/L (-2.0-2.0); BG DEOXYHEMOGLOBIN 1.5 % (0.0-5.0); BG HCO3 ACT 18.7 mmol/L (22.0-26.0); BG METHEMOGLOBIN 0.3 % (0.0-1.5); BG OXYGEN SATURATION 98.5 % (92.0-98.5); BG OXYHEMOGLOBIN 98.2 % (94.0-97.0); BG PCO2 32.1 mmHg (35.0-45.0); BG PH 7.383 (7.350-7.450); BG SAMPLE SITE RIGHT BRACHIAL; BG TOTAL HEMOGLOBIN 9.9 g/dL (12.0-18.0); BG VENT MODE NASAL CANNULA
[2022-02-26] MEDS: CEFTRIAXONE 1,000 MG in DEXTROSE 5% WATER 50 ML IV SCH (16:06)
[2022-02-26 16:26] LABS: HEMATOCRIT. 35.3 % (42.0-52.0); HEMOGLOBIN. 10.1 g/dL (14.0-18.0); MEAN CORPUSCULAR HEMOGLOBIN 24.6 pg (28.0-32.0); MEAN CORPUSCULAR VOLUME 85.4 fL (80.0-94.0); MEAN PLATELET VOLUME 8.5 fl (7.4-10.4); PLATELET 176 x1000/uL (130-400); RED BLOOD CELL COUNT 4.13 mill/uL (4.7-6.1); RED CELL DISTRIBUTION WIDTH 18.5 % (11.6-14.6)
[2022-02-26] MEDS: AZITHROMYCIN 500 MG in DEXT 5% WATER 250 ML IV SCH (16:44)
[2022-02-26 17:13] LABS: INR 1.2; PROTHROMBIN TIME 13.1 sec (9.6-11.0)
[2022-02-26 22:04] LABS: PLATELET ESTIMATE NORMAL
[2022-02-27] VITALS (12 sets, daily range): BP systolic 100–161; BP diastolic 64–77
[2022-02-27] MEDS: SODIUM CHLORIDE 0.45% 1,000 ML IV SCH (04:05)
[2022-02-27] MEDS: METHYLPREDNISOLONE SOD SUCC 40 MG/ML VIAL IV SCH ×3 (04:07→20:26)
[2022-02-27 06:27] LABS: BASOPHILS % 0.1 % (0.0-2.0); HEMATOCRIT. 30.6 % (42.0-52.0); HEMOGLOBIN. 9.4 g/dL (14.0-18.0); MEAN CORPUSCULAR HEMOGLOBIN 24.7 pg (28.0-32.0); MEAN CORPUSCULAR VOLUME 80.6 fL (80.0-94.0); MEAN PLATELET VOLUME 8.6 fl (7.4-10.4); MONOCYTES % 4.5 % (2.0-8.0); NEUTROPHILS % 85.4 % (40.0-76.0); PLATELET 168 x1000/uL (130-400); RED BLOOD CELL COUNT 3.79 mill/uL (4.7-6.1); RED CELL DISTRIBUTION WIDTH 18.2 % (11.6-14.6)
[2022-02-27] MEDS: BLOOD SUGAR DIAGNOSTIC STRIP TEST SCH ×4 (08:22→21:00)
[2022-02-27] MEDS: FAMOTIDINE 20MG TABLET PO SCH (08:22)
[2022-02-27] MEDS: INSULIN LISPRO 100 UNITS/ML SUBCUT SCH ×5 (08:23→22:41)
[2022-02-27] MEDS: ENOXAPARIN 30MG/0.3ML SYR SUBCUT SCH (08:23)
[2022-02-27] MEDS: INSULIN GLARGINE 100 UNITS/ML SUBCUT SCH ×2 (10:10→22:41)
[2022-02-27] MEDS: AZITHROMYCIN 500 MG TABLET PO SCH (16:53)
[2022-02-27] MEDS: CEFTRIAXONE 1,000 MG in DEXTROSE 5% WATER 50 ML IV SCH (16:53)
[2022-02-27] MEDS: GUAIFENESIN-DM 200MG-20MG/10ML UDC PO PRN ×2 (16:53→22:36)
[2022-02-27] MEDS ORDERED: GUAIFENESIN/CODEINE 200-20MG/10ML UDC PO PRN (17:00)
[2022-02-28] VITALS (13 sets, daily range): BP systolic 114–144; BP diastolic 62–93
[2022-02-28] MEDS: METHYLPREDNISOLONE SOD SUCC 40 MG/ML VIAL IV SCH ×3 (02:07→19:11)
[2022-02-28 06:46] LABS: HEMATOCRIT. 29.6 % (42.0-52.0); HEMOGLOBIN. 9.2 g/dL (14.0-18.0); MEAN CORPUSCULAR HEMOGLOBIN 24.7 pg (28.0-32.0); MEAN CORPUSCULAR VOLUME 79.5 fL (80.0-94.0); MEAN PLATELET VOLUME 8.4 fl (7.4-10.4); PLATELET 197 x1000/uL (130-400); RED BLOOD CELL COUNT 3.73 mill/uL (4.7-6.1); RED CELL DISTRIBUTION WIDTH 18.4 % (11.6-14.6)
[2022-02-28] MEDS: GUAIFENESIN-DM 200MG-20MG/10ML UDC PO PRN ×2 (06:48→20:40)
[2022-02-28] MEDS: ONDANSETRON HCL 4MG/2ML INJ IV PRN ×2 (06:48→20:40)
[2022-02-28] MEDS: FAMOTIDINE 20MG TABLET PO SCH (06:48)
[2022-02-28] MEDS: INSULIN LISPRO 100 UNITS/ML SUBCUT SCH ×7 (07:30→20:41)
[2022-02-28] MEDS: BLOOD SUGAR DIAGNOSTIC STRIP TEST SCH ×4 (07:30→20:31)
[2022-02-28 08:30] LABS: PLATELET ESTIMATE NORMAL
[2022-02-28] MEDS: ENOXAPARIN 30MG/0.3ML SYR SUBCUT SCH (09:49)
[2022-02-28] MEDS: INSULIN GLARGINE 100 UNITS/ML SUBCUT SCH ×2 (10:50→23:55)
[2022-02-28] MEDS: CEFTRIAXONE 1,000 MG in DEXTROSE 5% WATER 50 ML IV SCH (17:47)
[2022-02-28] MEDS: AZITHROMYCIN 500 MG TABLET PO SCH (17:47)
[2022-03-01] VITALS (11 sets, daily range): BP systolic 114–147; BP diastolic 72–89
[2022-03-01] MEDS: METHYLPREDNISOLONE SOD SUCC 40 MG/ML VIAL IV SCH ×3 (04:33→19:10)
[2022-03-01] MEDS: FAMOTIDINE 20MG TABLET PO SCH (06:56)
[2022-03-01 07:18] LABS: BASOPHILS % 0.2 % (0.0-2.0); HEMATOCRIT. 28.7 % (42.0-52.0); LYMPHOCYTES % 9.5 % (20.0-50.0); MEAN CORPUSCULAR HEMOGLOBIN 24.7 pg (28.0-32.0); MEAN PLATELET VOLUME 8.5 fl (7.4-10.4); MONOCYTES % 3.9 % (2.0-8.0); NEUTROPHILS % 86.4 % (40.0-76.0); PLATELET 158 x1000/uL (130-400); RED BLOOD CELL COUNT 3.64 mill/uL (4.7-6.1); RED CELL DISTRIBUTION WIDTH 18.1 % (11.6-14.6)
[2022-03-01] MEDS: INSULIN LISPRO 100 UNITS/ML SUBCUT SCH ×6 (07:30→16:48)
[2022-03-01] MEDS: BLOOD SUGAR DIAGNOSTIC STRIP TEST SCH ×3 (07:35→16:48)
[2022-03-01 09:24] LABS: BG BASE EXCESS -5.8 mmol/L (-2.0-2.0); BG CARBOXYHEMOGLOBIN 0.5 % (0.5-1.5); BG DEOXYHEMOGLOBIN 5.7 % (0.0-5.0); BG HCO3 ACT 18.5 mmol/L (22.0-26.0); BG METHEMOGLOBIN 0.4 % (0.0-1.5); BG OXYGEN SATURATION 94.2 % (92.0-98.5); BG OXYHEMOGLOBIN 93.4 % (94.0-97.0); BG PCO2 31.7 mmHg (35.0-45.0); BG PH 7.383 (7.350-7.450); BG PO2 77.8 mmHg (75.0-100.0); BG SAMPLE SITE RIGHT RADIAL; BG VENT MODE ROOM AIR
[2022-03-01] MEDS: INSULIN GLARGINE 100 UNITS/ML SUBCUT SCH (10:00)
[2022-03-01] MEDS: ENOXAPARIN 30MG/0.3ML SYR SUBCUT SCH (10:26)
[2022-03-01] MEDS ORDERED: LIDOCAINE HCL/PF 1% 2ML VIAL ONE (12:00)
[2022-03-01] MEDS: AZITHROMYCIN 500 MG TABLET PO SCH (17:18)
[2022-03-01] MEDS: CEFTRIAXONE 1,000 MG in DEXTROSE 5% WATER 50 ML IV SCH (17:18)
== END 2022-03-01 21:19 | disposition home or self-care (01) | DRG 637 ==
LOC: ER 08:06 → 6WST 15:54 → ENRESERV 20:10 → 6WST 22:34 → 5EST 02-25 21:15
PROVIDERS: ADMIT Internal Medicine; ATTEND Internal Medicine
DX: E11.00 Type 2 diabetes mellitus with hyperosmolarity without nonketotic hyperglycemic-hyperosmolar coma (NKHHC) (principal); J18.9 Pneumonia, unspecified organism; N17.0 Acute kidney failure with tubular necrosis; G93.49 Other encephalopathy; E87.2 Acidosis; I13.0 Hypertensive heart and chronic kidney disease with heart failure and stage 1 through stage 4 chronic kidney disease, or unspecified chronic kidney disease; E11.65 Type 2 diabetes mellitus with hyperglycemia; E11.22 Type 2 diabetes mellitus with diabetic chronic kidney disease; N18.9 Chronic kidney disease, unspecified; D64.9 Anemia, unspecified; R00.0 Tachycardia, unspecified; Z20.822 Contact with and (suspected) exposure to COVID-19; I34.0 Nonrheumatic mitral (valve) insufficiency; I35.0 Nonrheumatic aortic (valve) stenosis; Z86.73 Personal history of transient ischemic attack (TIA), and cerebral infarction without residual deficits; I50.9 Heart failure, unspecified
CPT/HCPCS: 36415; 36600; 71045; 80048; 80053; 81003; 82010; 82375; 82805; 82962; 83036; 83605; 83735; 83930; 84484; 85025; 86850; 86900; 87426; 93005; 93306; 94640; 94660; 97162; 99291; C9803; J0456; J0696; J1650; J1815; J1940; J2405; J2543; J2920; J3370; J3490; J7030; J7060

== ENCOUNTER 2022-03-02 12:34 | Inpatient (IN) | payer BC ==
[~2022-03-02] VITALS: Ht 170.2 cm; Wt 108.8 kg
[2022-03-02] MEDS ORDERED: SODIUM CHLORIDE 0.9% 1,000 ML IV ONE ×2 (12:45→18:15)
[2022-03-02 13:22] LABS: BASOPHILS % 0.3 % (0.0-2.0); HEMATOCRIT. 31.1 % (42.0-52.0); HEMOGLOBIN. 9.5 g/dL (14.0-18.0); LYMPHOCYTES % 12.1 % (20.0-50.0); MEAN CORPUSCULAR HEMOGLOBIN 24.6 pg (28.0-32.0); MEAN CORPUSCULAR VOLUME 80.6 fL (80.0-94.0); MEAN PLATELET VOLUME 7.9 fl (7.4-10.4); MONOCYTES % 5.3 % (2.0-8.0); NEUTROPHILS % 82.3 % (40.0-76.0); PLATELET 171 x1000/uL (130-400); RED BLOOD CELL COUNT 3.86 mill/uL (4.7-6.1); RED CELL DISTRIBUTION WIDTH 18.4 % (11.6-14.6)
[2022-03-02 13:36] LABS: CHLORIDE 104 mEq/L (98-107)
[2022-03-02 13:37] LABS: CLARITY URINE CLEAR (CLEAR); COLOR URINE YELLOW (YELLOW); KETONES URINE NEGATIVE (NEGATIVE); LEUKOCYTE ESTERASE URINE NEGATIVE (NEGATIVE); NITRITE URINE NEGATIVE (NEGATIVE); OCCULT BLOOD URINE TRACE (NEGATIVE); PH URINE 5.5 (4.5-8.0); PROTEIN URINE 1+ (NEGATIVE); SPECIFIC GRAVITY URINE 1.021 (1.005-1.030)
[2022-03-02] MEDS ORDERED: BENZONATATE 100MG CAPSULE PO SCH (14:15)
[2022-03-03 03:50] VITALS: BP 128/75
[2022-03-03] MEDS ORDERED: DEXTROSE 50% WATER 50ML SYRINGE IV PRN (05:45)
[2022-03-03] MEDS: SODIUM CHLORIDE 0.45% 1,000 ML IV SCH ×2 (06:38→19:05)
[2022-03-03] MEDS: BLOOD SUGAR DIAGNOSTIC STRIP TEST SCH ×4 (06:38→20:29)
[2022-03-03] MEDS: PANTOPRAZOLE 40MG DR TABLET PO SCH (07:19)
[2022-03-03 08:00] VITALS: BP 131/83
[2022-03-03] MEDS: ASPIRIN 81MG TABLET PO SCH (09:00)
[2022-03-03] MEDS: INSULIN LISPRO 100 UNITS/ML SUBCUT SCH ×4 (09:01→20:30)
[2022-03-03 12:00] VITALS: BP 126/86
[2022-03-03 13:21] LABS: BG BASE EXCESS -4.6 mmol/L (-2.0-2.0); BG CARBOXYHEMOGLOBIN 0.9 % (0.5-1.5); BG DEOXYHEMOGLOBIN 4.4 % (0.0-5.0); BG HCO3 ACT 19.7 mmol/L (22.0-26.0); BG METHEMOGLOBIN 0.6 % (0.0-1.5); BG OXYGEN SATURATION 95.5 % (92.0-98.5); BG OXYHEMOGLOBIN 94.1 % (94.0-97.0); BG PCO2 33.3 mmHg (35.0-45.0); BG PH 7.389 (7.350-7.450); BG PO2 83.4 mmHg (75.0-100.0); BG SAMPLE SITE RIGHT RADIAL; BG VENT MODE ROOM AIR
[2022-03-03 16:00] VITALS: BP 121/76
[2022-03-03 18:22] LABS: BASOPHILS % 0.1 % (0.0-2.0); EOSINOPHILS % 0.2 % (0.0-5.0); HEMATOCRIT. 32.5 % (42.0-52.0); HEMOGLOBIN. 9.8 g/dL (14.0-18.0); LYMPHOCYTES % 20.9 % (20.0-50.0); MEAN CORPUSCULAR HEMOGLOBIN 24.2 pg (28.0-32.0); MEAN CORPUSCULAR VOLUME 80.2 fL (80.0-94.0); MEAN PLATELET VOLUME 8.4 fl (7.4-10.4); MONOCYTES % 4.9 % (2.0-8.0); NEUTROPHILS % 73.9 % (40.0-76.0); PLATELET 181 x1000/uL (130-400); RED BLOOD CELL COUNT 4.05 mill/uL (4.7-6.1); RED CELL DISTRIBUTION WIDTH 18.5 % (11.6-14.6)
[2022-03-03 20:00] VITALS: BP 133/90
[2022-03-03] MEDS: PREDNISONE 20MG TABLET PO SCH (20:28)
[2022-03-03] MEDS: FUROSEMIDE 40MG/4ML VIAL IVP SCH (20:28)
[2022-03-03] MEDS: INSULIN GLARGINE 100 UNITS/ML SUBCUT SCH (22:09)
[2022-03-04] VITALS: BP 119/81
[2022-03-04 04:00] VITALS: BP 121/75
[2022-03-04] MEDS: IPRATROPIUM/ALBUTEROL 0.5-3(2.5)MG/3ML NEB HHN SCH ×5 (04:58→20:29)
[2022-03-04] MEDS: PANTOPRAZOLE 40MG DR TABLET PO SCH (06:25)
[2022-03-04] MEDS: BLOOD SUGAR DIAGNOSTIC STRIP TEST SCH ×4 (06:25→20:40)
[2022-03-04] MEDS: INSULIN LISPRO 100 UNITS/ML SUBCUT SCH ×4 (07:43→21:25)
[2022-03-04 08:00] VITALS: BP 125/81
[2022-03-04] MEDS: PREDNISONE 20MG TABLET PO SCH ×2 (09:28→18:42)
[2022-03-04] MEDS: ASPIRIN 81MG TABLET PO SCH (09:28)
[2022-03-04] MEDS: FUROSEMIDE 40MG/4ML VIAL IVP SCH (09:28)
[2022-03-04 12:00] VITALS: BP 123/86
[2022-03-04 16:00] VITALS: BP 140/52
[2022-03-04 20:00] VITALS: BP 145/67
[2022-03-04] MEDS: SODIUM CHLORIDE 0.45% 1,000 ML IV SCH (21:17)
[2022-03-04] MEDS: INSULIN GLARGINE 100 UNITS/ML SUBCUT SCH (21:25)
[2022-03-05] VITALS: BP 133/70
[2022-03-05] MEDS ORDERED: ACETAMINOPHEN 325MG TABLET PO PRN
[2022-03-05] MEDS: IPRATROPIUM/ALBUTEROL 0.5-3(2.5)MG/3ML NEB HHN SCH ×5 (00:56→16:01)
[2022-03-05 04:00] VITALS: BP 138/67
[2022-03-05] MEDS: PANTOPRAZOLE 40MG DR TABLET PO SCH (06:24)
[2022-03-05 06:27] LABS: BASOPHILS % 0.1 % (0.0-2.0); HEMATOCRIT. 30.4 % (42.0-52.0); HEMOGLOBIN. 9.3 g/dL (14.0-18.0); LYMPHOCYTES % 9.7 % (20.0-50.0); MEAN CORPUSCULAR HEMOGLOBIN 24.6 pg (28.0-32.0); MEAN CORPUSCULAR VOLUME 80.5 fL (80.0-94.0); MEAN PLATELET VOLUME 8.2 fl (7.4-10.4); NEUTROPHILS % 87.2 % (40.0-76.0); PLATELET 175 x1000/uL (130-400); RED BLOOD CELL COUNT 3.78 mill/uL (4.7-6.1); RED CELL DISTRIBUTION WIDTH 18.2 % (11.6-14.6)
[2022-03-05] MEDS: BLOOD SUGAR DIAGNOSTIC STRIP TEST SCH ×3 (06:36→17:43)
[2022-03-05 08:00] VITALS: BP 132/66
[2022-03-05] MEDS: PREDNISONE 20MG TABLET PO SCH ×2 (10:10→19:20)
[2022-03-05] MEDS: FUROSEMIDE 40MG/4ML VIAL IVP SCH (10:10)
[2022-03-05] MEDS: ASPIRIN 81MG TABLET PO SCH (10:10)
[2022-03-05] MEDS: INSULIN LISPRO 100 UNITS/ML SUBCUT SCH ×3 (10:12→19:19)
[2022-03-05 12:00] VITALS: BP 115/63
[2022-03-05 16:00] VITALS: BP 131/75
[2022-03-05 18:41] VITALS: BP 131/75
== END 2022-03-05 19:50 | DRG 199 ==
LOC: ER 13:01 → MICUSO 22:42 → EDBEDREQ 22:47 → 6WST 03-03 03:17
PROVIDERS: ADMIT Internal Medicine; ATTEND Internal Medicine
DX: T79.7XXA Traumatic subcutaneous emphysema, initial encounter (principal); G93.41 Metabolic encephalopathy; I13.0 Hypertensive heart and chronic kidney disease with heart failure and stage 1 through stage 4 chronic kidney disease, or unspecified chronic kidney disease; J44.1 Chronic obstructive pulmonary disease with (acute) exacerbation; I50.32 Chronic diastolic (congestive) heart failure; N18.9 Chronic kidney disease, unspecified; E11.22 Type 2 diabetes mellitus with diabetic chronic kidney disease; E11.65 Type 2 diabetes mellitus with hyperglycemia; D64.9 Anemia, unspecified; Z20.822 Contact with and (suspected) exposure to COVID-19; Z79.899 Other long term (current) drug therapy; Z86.73 Personal history of transient ischemic attack (TIA), and cerebral infarction without residual deficits; Z82.49 Family history of ischemic heart disease and other diseases of the circulatory system; W19.XXXA Unspecified fall, initial encounter; Y93.89 Activity, other specified; Y92.89 Other specified places as the place of occurrence of the external cause; Y99.8 Other external cause status
CPT/HCPCS: 36415; 36600; 70551; 71045; 72170; 76700; 80048; 80053; 81003; 82375; 82805; 82962; 83036; 83605; 83735; 84132; 84484; 85025; 87426; 93005; 94640; 97116; 97162; 99285; C9803; J1815; J1940; J7030; J7512

== ENCOUNTER 2022-04-03 11:52 | Inpatient (IN) | payer BC ==
[~2022-04-03] VITALS: Ht 170.2 cm; Wt 86.2 kg
[2022-04-03] MEDS ORDERED: SODIUM CHLORIDE 0.9% 1,000 ML IV ONE (12:30)
[2022-04-03 12:41] LABS: BG BASE EXCESS -4.1 mmol/L (-2.0-2.0); BG CARBOXYHEMOGLOBIN 0.4 % (0.5-1.5); BG DEOXYHEMOGLOBIN 9.2 % (0.0-5.0); BG HCO3 ACT 20.2 mmol/L (22.0-26.0); BG METHEMOGLOBIN 0.5 % (0.0-1.5); BG OXYGEN SATURATION 90.7 % (92.0-98.5); BG OXYHEMOGLOBIN 89.9 % (94.0-97.0); BG PCO2 33.4 mmHg (35.0-45.0); BG PH 7.399 (7.350-7.450); BG PO2 67.2 mmHg (75.0-100.0); BG SAMPLE SITE RIGHT BRACHIAL; BG TOTAL HEMOGLOBIN 8.7 g/dL (12.0-18.0); BG VENT MODE ROOM AIR
[2022-04-03 13:09] LABS: BASOPHILS % 0.6 % (0.0-2.0); EOSINOPHILS % 0.1 % (0.0-5.0); HEMATOCRIT. 27.8 % (42.0-52.0); HEMOGLOBIN. 8.4 g/dL (14.0-18.0); LYMPHOCYTES % 13.8 % (20.0-50.0); MEAN CORPUSCULAR HEMOGLOBIN 24.5 pg (28.0-32.0); MEAN CORPUSCULAR VOLUME 81.1 fL (80.0-94.0); MEAN PLATELET VOLUME 7.8 fl (7.4-10.4); MONOCYTES % 8.9 % (2.0-8.0); NEUTROPHILS % 76.6 % (40.0-76.0); PLATELET 309 x1000/uL (130-400); RED BLOOD CELL COUNT 3.43 mill/uL (4.7-6.1); RED CELL DISTRIBUTION WIDTH 21.1 % (11.6-14.6)
[2022-04-03 14:47] LABS: INR 1.2; PROTHROMBIN TIME 13.2 sec (9.6-11.0)
[2022-04-03 15:04] LABS: CHLORIDE 103 mEq/L (98-107)
[2022-04-03 15:20] LABS: BETA HYDROXYBUTYRATE 1.4 mMol/L (0.0-0.3)
[2022-04-03] MEDS ORDERED: INSULIN REGULAR (HUMULIN R) 300UNITS/3ML VIAL IV ONE (16:00)
[2022-04-03 17:07] LABS: CLARITY URINE CLEAR (CLEAR); COLOR URINE YELLOW (YELLOW); KETONES URINE TRACE (NEGATIVE); LEUKOCYTE ESTERASE URINE TRACE (NEGATIVE); NITRITE URINE NEGATIVE (NEGATIVE); OCCULT BLOOD URINE NEGATIVE (NEGATIVE); PROTEIN URINE 1+ (NEGATIVE); SPECIFIC GRAVITY URINE 1.025 (1.005-1.030)
[2022-04-03] MEDS ORDERED: CEFTRIAXONE 1 G PREMIX 50 ML IV ONE (18:45)
[2022-04-03] MEDS ORDERED: FLUCONAZOLE 100MG TABLET PO ONE (18:45)
[2022-04-03 21:45] VITALS: BP 116/75
[2022-04-03 22:00] VITALS: BP 116/75
[2022-04-03] MEDS ORDERED: HYDROCODONE/ACETAMINOPHEN 5/325MG TABLET PO PRN (22:30)
[2022-04-03] MEDS ORDERED: CEFTRIAXONE 1 G PREMIX 50 ML IV SCH (22:30)
[2022-04-03] MEDS ORDERED: ACETAMINOPHEN 650MG/20.3ML UDC PO PRN (22:30)
[2022-04-03] MEDS ORDERED: DEXTROSE 50% WATER 50ML SYRINGE IV PRN (22:45)
[2022-04-03] MEDS: BLOOD SUGAR DIAGNOSTIC STRIP TEST SCH (22:59)
[2022-04-03] MEDS: SODIUM CHLORIDE 0.45% 1,000 ML IV SCH (23:16)
[2022-04-04] VITALS: BP 111/73
[2022-04-04 04:00] VITALS: BP 112/72
[2022-04-04] MEDS: PANTOPRAZOLE 40MG DR TABLET PO SCH (06:37)
[2022-04-04 06:44] LABS: HEMATOCRIT 25.4 % (42.0-52.0); HEMOGLOBIN 8.1 g/dL (14.0-18.0); MEAN CORPUSCULAR HEMOGLOBIN 25.1 pg (28.0-32.0); MEAN CORPUSCULAR VOLUME 78.4 fL (80.0-94.0); PLATELET 287 x1000/uL (130-400); RED BLOOD CELL COUNT 3.24 mill/uL (4.7-6.1); RED CELL DISTRIBUTION WIDTH 20.8 % (11.6-14.6)
[2022-04-04] MEDS: BLOOD SUGAR DIAGNOSTIC STRIP TEST SCH ×4 (06:46→21:06)
[2022-04-04] MEDS ORDERED: BLOOD SUGAR DIAGNOSTIC STRIP TEST SCH (07:20)
[2022-04-04] MEDS: INSULIN LISPRO 100 UNITS/ML SUBCUT SCH ×4 (07:50→21:29)
[2022-04-04 08:00] VITALS: BP 109/66
[2022-04-04] MEDS: METOPROLOL TARTRATE 25MG TABLET PO SCH ×2 (09:00→21:00)
[2022-04-04 12:00] VITALS: BP 120/75
[2022-04-04] MEDS ORDERED: NALOXONE HCL 0.4MG/ML VIAL IV PRN (15:00)
[2022-04-04 16:00] VITALS: BP 113/67
[2022-04-04 20:00] VITALS: BP 107/61
[2022-04-04] MEDS ORDERED: CEFTRIAXONE 1,000 MG in DEXTROSE 5% WATER 50 ML IV SCH (20:00)
[2022-04-04] MEDS ORDERED: INSULIN GLARGINE 100 UNITS/ML SUBCUT SCH (22:00)
[2022-04-04] MEDS: SODIUM CHLORIDE 0.45% 1,000 ML IV SCH (23:11)
[2022-04-05] VITALS (7 sets, daily range): BP systolic 103–125; BP diastolic 60–74
[2022-04-05] MEDS: BLOOD SUGAR DIAGNOSTIC STRIP TEST SCH ×3 (06:20→18:16)
[2022-04-05] MEDS: PANTOPRAZOLE 40MG DR TABLET PO SCH (06:29)
[2022-04-05 07:24] LABS: BASOPHILS % 0.4 % (0.0-2.0); EOSINOPHILS % 0.3 % (0.0-5.0); HEMATOCRIT. 24.6 % (42.0-52.0); HEMOGLOBIN. 7.8 g/dL (14.0-18.0); LYMPHOCYTES % 19.6 % (20.0-50.0); MEAN CORPUSCULAR VOLUME 79.1 fL (80.0-94.0); MEAN PLATELET VOLUME 7.7 fl (7.4-10.4); MONOCYTES % 8.5 % (2.0-8.0); NEUTROPHILS % 71.2 % (40.0-76.0); PLATELET 256 x1000/uL (130-400); RED BLOOD CELL COUNT 3.11 mill/uL (4.7-6.1); RED CELL DISTRIBUTION WIDTH 20.5 % (11.6-14.6)
[2022-04-05] MEDS: INSULIN LISPRO 100 UNITS/ML SUBCUT SCH ×3 (07:50→17:50)
[2022-04-05] MEDS: METOPROLOL TARTRATE 25MG TABLET PO SCH (08:49)
[2022-04-05] MEDS: SODIUM CHLORIDE 0.45% 1,000 ML IV SCH ×2 (13:08→15:25)
[2022-04-06] MEDS ORDERED: METO-385 PO (15:52)
[2022-04-06] MEDS ORDERED: POTA10CA42 PO (15:52)
[2022-04-06] MEDS ORDERED: SITA100T11 PO (15:52)
[2022-04-06] MEDS ORDERED: BENA-8 PO (15:52)
[2022-04-06] MEDS ORDERED: PANT40TA51 PO (15:52)
[2022-04-06] MEDS ORDERED: DEXA6TAB PO (15:52)
== END 2022-04-05 21:25 | disposition hospice, home (50) | DRG 638 ==
LOC: ER 12:03 → 6WST 18:35 → EDBEDREQ 18:38 → EDBEDREQTM 18:38 → 6WST 21:15
PROVIDERS: ADMIT Internal Medicine; ATTEND Internal Medicine
DX: E11.65 Type 2 diabetes mellitus with hyperglycemia (principal); I13.0 Hypertensive heart and chronic kidney disease with heart failure and stage 1 through stage 4 chronic kidney disease, or unspecified chronic kidney disease; N17.9 Acute kidney failure, unspecified; N39.0 Urinary tract infection, site not specified; I50.22 Chronic systolic (congestive) heart failure; E86.0 Dehydration; N18.9 Chronic kidney disease, unspecified; I25.10 Atherosclerotic heart disease of native coronary artery without angina pectoris; Z20.822 Contact with and (suspected) exposure to COVID-19; E11.22 Type 2 diabetes mellitus with diabetic chronic kidney disease; D64.9 Anemia, unspecified; E11.40 Type 2 diabetes mellitus with diabetic neuropathy, unspecified; Z79.899 Other long term (current) drug therapy; Z79.82 Long term (current) use of aspirin; Z79.4 Long term (current) use of insulin; Z87.01 Personal history of pneumonia (recurrent); Z86.73 Personal history of transient ischemic attack (TIA), and cerebral infarction without residual deficits; Z82.49 Family history of ischemic heart disease and other diseases of the circulatory system; Z51.5 Encounter for palliative care
CPT/HCPCS: 36415; 36600; 71045; 72170; 80048; 80053; 80307; 80329; 81003; 82010; 82375; 82805; 82962; 83036; 83880; 83930; 84443; 84484; 85025; 85027; 86850; 86900; 87426; 93005; 97162; 99285; J0696; J1815; J7030; J7060

== ENCOUNTER 2022-04-06 09:21 | Emergency (ER) | payer BC ==
[~2022-04-06] VITALS: Ht 172.7 cm; Wt 73.0 kg
[2022-04-06] MEDS ORDERED: SODIUM CHLORIDE 0.9% 1,000 ML IV ONE (09:45)
[2022-04-06 09:53] VITALS: BP 108/63
[2022-04-06 09:53] LABS: BASOPHILS % 0.3 % (0.0-2.0); HEMATOCRIT. 28.1 % (42.0-52.0); HEMOGLOBIN. 8.4 g/dL (14.0-18.0); LYMPHOCYTES % 10.5 % (20.0-50.0); MEAN PLATELET VOLUME 8.2 fl (7.4-10.4); MONOCYTES % 7.4 % (2.0-8.0); NEUTROPHILS % 81.8 % (40.0-76.0); PLATELET 237 x1000/uL (130-400); RED BLOOD CELL COUNT 3.51 mill/uL (4.7-6.1); RED CELL DISTRIBUTION WIDTH 21.3 % (11.6-14.6)
[2022-04-06 10:02] LABS: CHLORIDE 104 mEq/L (98-107)
[2022-04-06] MEDS ORDERED: ASPIRIN 325MG EC TABLET PO ONE (11:45)
[2022-04-06 13:40] LABS: CLARITY URINE CLEAR (CLEAR); COLOR URINE YELLOW (YELLOW); KETONES URINE TRACE (NEGATIVE); LEUKOCYTE ESTERASE URINE 3+ (NEGATIVE); NITRITE URINE NEGATIVE (NEGATIVE); OCCULT BLOOD URINE TRACE (NEGATIVE); PROTEIN URINE 1+ (NEGATIVE); SPECIFIC GRAVITY URINE 1.019 (1.005-1.030)
[2022-04-06] MEDS ORDERED: ASPIRIN 325MG EC TABLET PO NR (14:45)
[2022-04-06] MEDS ORDERED: CEFTRIAXONE 1 G PREMIX 50 ML IV NR (15:15)
[2022-04-06] MEDS ORDERED: METO-385 PO (15:52)
[2022-04-06] MEDS ORDERED: DEXA6TAB PO (15:52)
[2022-04-06] MEDS ORDERED: SITA100T11 PO (15:52)
[2022-04-06] MEDS ORDERED: PANT40TA51 PO (15:52)
[2022-04-06] MEDS ORDERED: POTA10CA42 PO (15:52)
[2022-04-06] MEDS ORDERED: BENA-8 PO (15:52)
[2022-04-07] MEDS ORDERED: CEFTRIAXONE 1,000 MG in DEXTROSE 5% WATER 50 ML IV SCH (09:00)
== END 2022-04-06 11:48 | disposition hospice, inpatient (51) ==
LOC: ER 09:21 → EDBEDREQ 11:48 → EDBEDREQTM 11:48 → ER 11:48 → CANRESERV 19:05 → ENRESERV 19:05 → CANBEDREQ 19:06
DX: A41.9 Sepsis, unspecified organism (principal); R55 Syncope and collapse; I21.4 Non-ST elevation (NSTEMI) myocardial infarction; D64.9 Anemia, unspecified; N17.9 Acute kidney failure, unspecified; E11.9 Type 2 diabetes mellitus without complications; I10 Essential (primary) hypertension; Z87.01 Personal history of pneumonia (recurrent); Z86.73 Personal history of transient ischemic attack (TIA), and cerebral infarction without residual deficits; Z79.899 Other long term (current) drug therapy
CPT/HCPCS: 36415; 70450; 71045; 80053; 81003; 83605; 83880; 84484; 85025; 93005; 96360; 99291; J7030

== ENCOUNTER 2022-04-15 07:50 | Emergency (ER) | payer BC ==
[~2022-04-15] VITALS: Ht 185.4 cm; Wt 99.0 kg
[~2022-04-15 07:50] MED LIST changes: +BENA-8 PO; +DEXA6TAB PO; +METO-385 PO; +PANT40TA51 PO; +POTA10CA42 PO; +SITA100T11 PO
[2022-04-15] MEDS ORDERED: SODIUM CHLORIDE 0.9% 1,000 ML IV ONE (08:00)
[2022-04-15 09:45] LABS: HEMATOCRIT. 29.8 % (42.0-52.0); HEMOGLOBIN. 8.7 g/dL (14.0-18.0); MEAN PLATELET VOLUME 8.4 fl (7.4-10.4); PLATELET 145 x1000/uL (130-400); RED BLOOD CELL COUNT 3.63 mill/uL (4.7-6.1); RED CELL DISTRIBUTION WIDTH 22.1 % (11.6-14.6)
[2022-04-15 09:55] LABS: CHLORIDE 107 mEq/L (98-107)
[2022-04-15 10:56] LABS: PLATELET ESTIMATE NORMAL
[2022-04-15 11:00] VITALS: BP 147/81
[2022-04-15] MEDS ORDERED: SODIUM POLYSTYRENE SULFONATE 15 G/60 ML BOT PO ONE (11:30)
== END 2022-04-15 11:30 | disposition home or self-care (01) ==
LOC: ER 08:01
DX: Z00.00 Encounter for general adult medical examination without abnormal findings (principal); I11.0 Hypertensive heart disease with heart failure; I50.9 Heart failure, unspecified; E11.9 Type 2 diabetes mellitus without complications; Z87.01 Personal history of pneumonia (recurrent); Z86.73 Personal history of transient ischemic attack (TIA), and cerebral infarction without residual deficits; Z79.899 Other long term (current) drug therapy
CPT/HCPCS: 36415; 80053; 85025; 93005; 96360; 99291; J7030